=== PATIENT | male | born 1970 | race Caucasian/White ===

== ENCOUNTER 2020-03-03 12:55 | Outpatient (REF) | payer OTHER, MEDICAID, SELFPAY ==
--- NOTE | 2020-03-03 13:12 | XR_ITS ---
EXAMINATION: KNEE X-RAY CLINICAL INFORMATION: Osteoarthritis COMPARISON: Previous x-ray June 2018 TECHNIQUE: Standing AP view of both knees and lateral and sunrise view of the right knee FINDINGS: Right: Bone alignment is normal. No fracture or dislocation is seen. There is joint space narrowing at the medial femoral tibial joint. There is joint space narrowing and osteophyte formation at the patellofemoral joint. There is no joint effusion. There is a cortical bony excrescence projecting off the posterior proximal tibial shaft. This is unchanged from previous x-ray from December 2017 and probably represents a bony exostosis. Standing AP view of the left knee demonstrates mild medial femoral tibial joint space narrowing. XR/XR knee RT 2V IMPRESSION: Right knee: Arthritis at the medial femoral tibial and patellofemoral joints. Probable bony exostosis projecting off the proximal posterior tibial shaft.
--- NOTE | 2020-03-03 13:12 | XR_ITS ---
EXAMINATION: KNEE X-RAY CLINICAL INFORMATION: Osteoarthritis COMPARISON: Previous x-ray June 2018 TECHNIQUE: Standing AP view of both knees and lateral and sunrise view of the right knee FINDINGS: Right: Bone alignment is normal. No fracture or dislocation is seen. There is joint space narrowing at the medial femoral tibial joint. There is joint space narrowing and osteophyte formation at the patellofemoral joint. There is no joint effusion. There is a cortical bony excrescence projecting off the posterior proximal tibial shaft. This is unchanged from previous x-ray from December 2017 and probably represents a bony exostosis. Standing AP view of the left knee demonstrates mild medial femoral tibial joint space narrowing. XR/XR knee standing BI IMPRESSION: Right knee: Arthritis at the medial femoral tibial and patellofemoral joints. Probable bony exostosis projecting off the proximal posterior tibial shaft.
== END 2020-03-03 12:56 | disposition home or self-care (01) ==
LOC: HO.HOSX 12:55
PROVIDERS: PCP Internal Medicine Medical Oncology; Referring Provider Internal Medicine Medical Oncology; Visit Provider Orthopaedic Surgery
DX: M17.11 Unilateral primary osteoarthritis, right knee (principal)
CPT/HCPCS: 73560; 73565

== ENCOUNTER → 2020-03-19 08:30 | Outpatient (BNVA) | payer OTHER, MEDICAID, SELFPAY | PROVIDERS: PCP Internal Medicine Medical Oncology; Visit Provider Orthopaedic Surgery | DX: Z76.89 Persons encountering health services in other specified circumstances (principal) ==

== ENCOUNTER 2020-05-06 08:11 | Outpatient (REF) | payer OTHER, MEDICAID, SELFPAY ==
[2020-05-06 08:43] LABS: MANUAL DIFF FLAG NO
[2020-05-06 08:50] LABS: Basophils Percent Auto 0.4 % (0-2); Eosinophils Absolute Auto 0.1 X10*3/uL (0.0-0.4); Eosinophils Percent Auto 1.6 % (0-4); Hematocrit 44.5 % (42-52); Hemoglobin 14.5 g/dl (14.0-18.0); Imm Gran Abs Auto 0.03 X10*3/uL (0.00-0.03); Imm Gran Pct Auto 0.5 % (0.0-0.4); Lymphocytes Absolute Auto 1.8 X10*3/uL (1.2-4.9); Lymphocytes Percent Auto 31.6 % (20-40); Mean Corpuscular HGB Conc 32.6 g/dl (31.0-36.0); Mean Corpuscular Hemoglobin 29.3 pg (27.0-33.0); Mean Corpuscular Volume 89.9 fL (80-98); Mean Platelet Volume 10.1 fL (9.4-12.4); Monocytes Absolute Auto 0.8 X10*3/uL (0.1-1.2); Monocytes Percent Auto 13.6 % (2-11); Neutrophils Percent Auto 52.3 % (45-73); Platelet Count 222 X10*3/uL (160-400); Red Blood Count 4.95 X10*6/uL (4.60-5.80); Red Cell Distribution Width 12.8 % (11.0-16.0); White Blood Count 5.7 X10*3/uL (4.8-10.8)
[2020-05-06 09:10] LABS: Alanine Aminotransferase 34 U/L (0-40); Albumin Level 4.2 g/dL (3.5-5.0); Alkaline Phosphatase 85 U/L (39-117); Anion Gap 11 (12-20); Aspartate Amino Transferase 16 U/L (5-37); Bilirubin Total 0.5 mg/dL (0.0-1.0); Blood Urea Nitrogen 23 mg/dL (9-16); Carbon Dioxide 29 mmol/L (22-29); Chloride 106 mmol/L (96-108); Cholesterol 249 mg/dL; Estimated Glomerular Filt Rate > 60; Glucose Fasting 111 mg/dL (60-99); HDL Cholesterol 36 mg/dL; LDL Cholesterol Calculated 150 mg/dl; Potassium 4.8 mmol/l (3.3-5.1); Sodium 141 mmol/L (135-145); Total Protein 6.8 g/dL (6.5-8.0); Triglycerides 317 mg/dL; Uric Acid 5.7 mg/dL (3.4-7.0)
== END 2020-05-06 08:12 | disposition home or self-care (01) ==
LOC: HO.LAB 08:11
PROVIDERS: Absent Provider Orthopaedic Surgery; PCP Internal Medicine Medical Oncology; Visit Provider Internal Medicine Medical Oncology
DX: M54.16 Radiculopathy, lumbar region (principal); E78.00 Pure hypercholesterolemia, unspecified; E66.9 Obesity, unspecified
CPT/HCPCS: 36415; 80053; 80061; 84550; 85025

== ENCOUNTER → 2020-06-05 12:46 | Outpatient (BNVA) | payer OTHER, MEDICAID, SELFPAY | PROVIDERS: PCP Internal Medicine Medical Oncology; Visit Provider Physician Assistant ==

== ENCOUNTER 2020-06-11 06:22 | Inpatient (IN) | payer OTHER, MEDICAID, SELFPAY ==
[2020-06-06 10:45] VITALS: BP 128/76; PULSE 84; RESP 16; O2SAT 99; BMI 29.0
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
[2020-06-06 13:38] LABS: MRSA Nasal PCR NEGATIVE (Negative); SA Nasal PCR NEGATIVE (Negative)
[2020-06-11] VITALS (12 sets, daily range): BP systolic 118–157; BP diastolic 60–101; PULSE 75–111; RESP 16–18; TEMP 36.2–37.4; O2SAT 96–100
--- NOTE | ~2020-06-11 | XR_ITS ---
EXAMINATION: XR KNEE, RIGHT CLINICAL INFORMATION: Post knee replacement COMPARISON: Previous x-ray most recent February 2020 TECHNIQUE: 2 of the right knee. FINDINGS: There is a new 3 component right knee replacement in satisfactory position. No fracture or dislocation is seen. There are postoperative changes of the soft tissues. XR/XR knee RT 2V IMPRESSION: Satisfactory appearance of right knee replacement.
[2020-06-11] MEDS: Scopolamine 1.5 MG PATCH.TD.3 TRANSDERMA (06:47)
[2020-06-11 06:48] LABS: COVID-19 Test Negative (Negative); IDNOW Serial# 9DD0AD1C
[2020-06-11] MEDS: Lactated Ringers 1,000 ML 100 ML IVCONT (07:15)
--- NOTE | 2020-06-11 07:40 | MHC.SHP ---
Pre-Procedural Eval Section A The patient is an INPATIENT: No Changes since office visit: Yes Patient answered all questions; No Cold of Flu in the past 2 weeks, No New Medical Problems and No Changes in Medication The History & Physical has been completed within 30 days and I have reviewed it.: Yes Section B Chief Complaint: right knee osteoarthritis Allergies: Allergies Allergy/AdvReac Type Severity Reaction Status Date / Time Gadolinium-Containing Allergy Unknown Difficulty Verified 06/06/20 11:27 Contrast Medi Breathing [GADOLINIUM-CONTAINING CONTRAST] Iodinated Contrast Media Allergy Unknown Difficulty Verified 06/06/20 11:27 [IV CONTRAST] Breathing gadolinium dye contrast Allergy Unknown Difficulty Uncoded 06/06/20 11:27 Breathing Isovue-200 Allergy Unknown Anaphylaxis Uncoded 06/06/20 11:27 Plan I have reviewed the history and physical and performed a pertinent physical examination on my patient. No changes have occurred unless specified.
--- NOTE | 2020-06-11 09:10 | P.BOP_ITS ---
Brief Operative Note Date of Service: 06/11/20 Pre-op diagnosis: right knee OA Post-op diagnosis: same Procedure: right TKA Implants: [employer] Triathalon press fit /a Surgeon: Arias Pat MD Anesthesia: GETA and regional Plant Sciences Professor: Hang Ruiz Estimated blood loss (mL): 200 Tourniquet time (min): 0 IV fluids (mL): 1,100 Pathology: other Condition: stable Disposition: PACU
--- NOTE | 2020-06-11 09:11 | P.OP_ITS ---
Operative Note Operative Note Date of Service: 06/11/20 Narrative: Attending MD: Arias Pat [employer] Sales Associate:[place] Ruiz; Marie Jimenez Preoperative diagnosis: Right knee OA Postoperative diagnosis:Same Procedure performed: Right total knee arthroplasty Anesthesia:Gen and regional Blood loss:200 ml Fluids:1100 ml Miscellaneous: Indications: This is a 49 yo M with ongoing knee pain from arthritis that had not responded to years of surgical and non surgical management. He was consented to undergo right TKA. Findings: Medial femoral and tibial eburnation. Implants: Ayaz Triathalon press fit 08/28/9CR/38a Procedure in detail: Patient was brought to the operating room and prepped and draped in standard sterile fashion. A time-out was called to identify proper site proper procedure proper surgeon IV antibiotics were administered. 1 g of IV tranexamic acid was also administered. I began by making a midline incision to the retinaculum and performed a medial parapatellar arthrotomy. The patella was translated laterally and the knee was flexed up. I performed a small medial peel and resected the infrapatellar fat pad. [place]'s line was then used to drill my intramedullary femoral guide and my distal femur cut was made in 5 degrees of valgus. He had a 10 deg flexion contracture and so 12 mm as taken off the distal femur. I then measured the femur and placed my cutting guide and made my anterior posterior and chamfer cuts protecting the soft tissues at all times. Th ere was an anterior femoral osteophyte that was partially resected. Once I was happy with my cut I turned my attention to the tibia. In line with the tibial crest and with a 3 degree posterior slope I made my distal tibial cut protecting the PCL the posterior soft tissues at all times. An extension block was used to confirm appropriate amount of bony resection. He was drew in flexion and exte nsion and extended out fully. I then sized the tibia and once I was happy that there was good tibial coverage I placed my trial and with the trial femur in place took the knee through range of motion. I was happy with the extension and flexion as well as the stability at 0, 30 and 90 degrees. I then turned my attention to the patella where I removed 1 cm from the undersurface of the patella and then trialed a patellar button of appropriate dimensions. A 38a patella wqs used and drilled. With the patellar button in place the knee was taken through range of motion I was happy with the tracking. I then returned to the femur and drilled my femoral lug holes and prepared the tibia. Femoral bone plug was then placed and the knee was irrigated copiously. I then press fit the patella, tibia and femur in standard fashion. I trialed different inserts until I found the appropriate size. A 9mm CR insert was selected. I then placed the final insert and performed a 3 minutes iodine soak with 1 gm of local TXA. The knee was then closed with a running Quill suture, a 3 0 Vicryl and brayan on the skin. Patient was then placed in sterile dressing and brought to recovery room in stable condition there were no known complications.
[2020-06-11] MEDS: oxyCODONE HCl Immed Release 5 MG TABLET 10 MG PO (10:03)
[2020-06-11] MEDS: Dextrose 5 % and 0.45 % NaCl 1,000 ML 80 ML IVCONT (11:38)
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
[2020-06-11] MEDS: HYDROmorphone HCl 0.5 MG/0.5 ML SYRINGE 0.25 MG IVPUSH ×3 (13:25→21:45)
[2020-06-11] MEDS: ceFAZolin Sodium/Dextrose,Iso 2 GM/50 ML PIGGYBACK IV (13:59)
[2020-06-11] MEDS: Gabapentin 600 MG TABLET PO ×2 (14:03→20:55)
[2020-06-11] MEDS: oxyCODONE HCl Immed Release 5 MG TABLET PO ×2 (14:47→19:35)
--- NOTE | 2020-06-11 18:03 | PM.EVENT ---
Event Note Date of Service: 06/13/20 Event Note: Patient seen and examined: Status post right right TKA This patient is seen and examined with APC. Lab imaging reviewed. Physical exam and assessment and plan coordinated in APCs note, Agree with the plan . Pain management bowelRegimen
[2020-06-11] MEDS: ondansetron HCL 4 MG/2 ML VIAL IVPUSH (18:13)
[2020-06-11] MEDS: Acetaminophen 325 MG TABLET 650 MG PO (19:35)
[2020-06-11] MEDS: oxyCODONE HCl ER 10 MG TAB.ER.12H PO (20:55)
[2020-06-12] VITALS (10 sets, daily range): BP systolic 133–174; BP diastolic 63–99; PULSE 72–111; RESP 16–18; TEMP 36.6–37.6; O2SAT 94–99
[2020-06-12] MEDS: Dextrose 5 % and 0.45 % NaCl 1,000 ML 80 ML IVCONT ×3 (00:10→21:10)
[2020-06-12] MEDS: oxyCODONE HCl Immed Release 5 MG TABLET PO ×2 (00:23→05:34)
[2020-06-12] MEDS: HYDROmorphone HCl 0.5 MG/0.5 ML SYRINGE 0.25 MG IVPUSH ×5 (01:58→20:59)
[2020-06-12] MEDS: Omeprazole 20 MG CAPSULE.DR PO (05:35)
[2020-06-12] MEDS: Acetaminophen 325 MG TABLET 650 MG PO ×2 (05:35→18:38)
[2020-06-12 05:59] LABS: MANUAL DIFF FLAG NO
[2020-06-12 06:05] LABS: Basophils Percent Auto 0.2 % (0-2); Hemoglobin 12.2 g/dl (14.0-18.0); Imm Gran Abs Auto 0.03 X10*3/uL (0.00-0.03); Imm Gran Pct Auto 0.3 % (0.0-0.4); Lymphocytes Absolute Auto 1.6 X10*3/uL (1.2-4.9); Lymphocytes Percent Auto 13.3 % (20-40); Mean Corpuscular Hemoglobin 29.8 pg (27.0-33.0); Mean Corpuscular Volume 90.2 fL (80-98); Mean Platelet Volume 10.3 fL (9.4-12.4); Monocytes Absolute Auto 1.1 X10*3/uL (0.1-1.2); Monocytes Percent Auto 8.9 % (2-11); Neutrophils Absolute Auto 9.2 X10*3/uL (2.0-8.3); Neutrophils Percent Auto 77.3 % (45-73); Platelet Count 210 X10*3/uL (160-400); Red Cell Distribution Width 13.2 % (11.0-16.0); White Blood Count 11.9 X10*3/uL (4.8-10.8)
[2020-06-12 06:38] LABS: Anion Gap 14 (12-20); Blood Urea Nitrogen 12 mg/dL (9-16); Carbon Dioxide 24 mmol/L (22-29); Chloride 105 mmol/L (96-108); Creatinine Clr Calc Pharmacy 123.3; Estimated Glomerular Filt Rate > 60; Glucose Fasting 133 mg/dL (60-99); Potassium 4.2 mmol/L (3.3-5.1); Sodium 139 mmol/L (135-145)
--- NOTE | 2020-06-12 08:10 | PM.PNORT ---
Subjective Subjective Date of Service: 06/12/20 Interval history: POD1 s/p RTKA resting in bed. Having slight difficulty with pain management. Denies SOB, chest pain, and abd pain. Physical Exam Vital Signs: Vital Signs: Last Vital Signs Temp 98.2 F 06/12/20 07:50 Pulse 72 06/12/20 07:50 Resp 16 06/12/20 07:50 BP 140/76 H 06/12/20 07:50 Pulse Ox 99 06/12/20 07:50 Body Mass Index 29.0 Const: General: cooperative, healthy appearing and no acute distress Resp: Effort & Inspection: normal respiratory effort and able to speak in complete sentences Cardio: Rate: regular rate Peripheral pulses: Peripheral pulses 2+ throughout GI: Palpation (GI): Soft to palpation Skin: Lesions: no lesions Rashes: no rashes Extrem: Other: RT knee no ecchymosis, redness, or drainage. Bandage changed and new Aquacell dressing applied. NVI. Progress Note: A&P Assessment and plan (1) S/P total knee replacement: Status: Acute Assessment and Plan: Continue pain mgmnt, Adjusted Oxycodone to 10 mg Begin Aspirin dvt ppx begin PT for right total knee arthroplasty Dispo planning-Pending PT eval, pain mgmnt Fall Risk Details Current Medications: Current Medications Generic Name Dose Route Start Last Admin Trade Name Freq PRN Reason Stop Dose Admin Acetaminophen 650 mg 06/11/20 10:59 06/12/20 05:35 Acetaminophen 325 Mg Tablet PO 650 mg Q6H PRN Administration Pain, Mild (Pain Scale 1-3) Aspirin 325 mg 06/12/20 09:00 Aspirin 325 Mg Tablet PO BID EUGENE Duloxetine HCl 90 mg 06/12/20 09:00 Duloxetine Hcl 30 Mg Capsule. PO DAILY EUGENE Gabapentin 600 mg 06/11/20 15:00 06/11/20 20:55 Gabapentin 600 Mg Tablet PO 600 mg TID EUGENE Administration Hydromorphone HCl 0.25 mg 06/11/20 10:59 06/12/20 06:19 Hydromorphone Hcl 0.5 Mg/0.5 Ml Syringe IVPUSH 0.25 mg Q4H PRN Administration Pain, Severe (Pain Scale 7-10) Dextrose/Sodium Chloride 1,000 mls @ 80 mls/hr 06/11/20 10:59 06/12/20 00:10 D51/2ns IVCONT 80 mls/hr .[id number] EUGENE Administration Naloxone HCl 0.2 mg 06/11/20 10:59 Naloxone Hcl 0.4 Mg/Ml Vial IVPUSH Q2M PRN Excessive sedation or RR < 8 Omeprazole 20 mg 06/12/20 06:30 06/12/20 05:35 Omeprazole 20 Mg Capsule.Dr PO 20 mg DAILY@0630 EUGENE Administration Ondansetron HCl 4 mg 06/11/20 10:59 06/11/20 18:13 Ondansetron Hcl 4 Mg/2 Ml Vial IVPUSH 4 mg Q8H PRN Administration Nausea and Vomiting Oxycodone HCl 5 mg 06/11/20 10:59 06/12/20 05:34 Oxycodone Hcl Immed Release 5 Mg Tablet PO 5 mg Q4H PRN Administration Pain, Moderate (Pain Scale 4-6 Oxycodone HCl 10 mg 06/11/20 21:00 06/11/20 20:55 Oxycodone Hcl Er 10 Mg Tab.Er.12h PO 10 mg BID EUGENE Administration Senna 17.2 mg 06/11/20 10:59 Sennosides 8.6 Mg Tablet PO BEDTIME PRN Constipation Sodium Chloride 3 ml 06/11/20 16:00 06/12/20 08:01 0.9 % Sodium Chloride Flush 3 Ml Syringe IVFLUSH Not Given QSHIFT EUGENE Time Spent With Patient Time: Total time spent is greater than 50% in coordination of care (as documented) at patient's floor/unit and/or counseling patient: Time with patient: less than 15 minutes
--- NOTE | 2020-06-12 08:36 | HO.PM.IMPN ---
Subjective Subjective Date of Service: 06/13/20 <Ashleigh Ramirez NP - Last Filed: 06/13/20 08:38> 06/13/20 <Maximus More MD - Last Filed: 06/13/20 12:02> Interval History: Follow up consultation, right knee arthroplasty. Having some difficulty with pain management. <Ashleigh Ramirez NP - Last Filed: 06/13/20 08:38> Physical Exam Vital Signs: Vital Signs: Last Vital Signs Temp 98.2 F 06/12/20 07:50 Pulse 72 06/12/20 07:50 Resp 16 06/12/20 07:50 BP 140/76 H 06/12/20 07:50 Pulse Ox 99 06/12/20 07:50 Body Mass Index 29.0 <Ashleigh Ramirez NP - Last Filed: 06/13/20 08:38> Appearing in no acute distress head is normocephalic atraumatic eyes pupils are PERRLA sclera is anicteric mouth throat mucous membranes are intact and moist neck is supple no lymphadenopathy, no JVD noted lung sounds are clear to auscultation heart regular rate rhythm, clear S1, S2 positive bowel sounds, abdomen is soft, nontender neuro patient is alert x3, no focal deficits MSK right knee dressing, clean, dry and intact <Ashleigh Ramirez NP - Last Filed: 06/13/20 08:38> Objective Data Current Medications Generic Name Dose Route Start Last Admin Trade Name Freq PRN Reason Stop Dose Admin Acetaminophen 650 mg 06/11/20 10:59 06/12/20 05:35 Acetaminophen 325 Mg Tablet PO 650 mg Q6H PRN Administration Pain, Mild (Pain Scale 1-3) Aspirin 325 mg 06/12/20 09:00 Aspirin 325 Mg Tablet PO BID EUGENE Duloxetine HCl 90 mg 06/12/20 09:00 Duloxetine Hcl 30 Mg Capsule.Dr PO DAILY EUGENE Gabapentin 600 mg 06/11/20 15:00 06/11/20 20:55 Gabapentin 600 Mg Tablet PO 600 mg TID EUGENE Administration Hydromorphone HCl 0.25 mg 06/11/20 10:59 06/12/20 06:19 Hydromorphone Hcl 0.5 Mg/0.5 Ml Syringe IVPUSH 0.25 mg Q4H PRN Administration Pain, Severe (Pain Scale 7-10) Dextrose/Sodium Chloride 1,000 mls @ 80 mls/hr 06/11/20 10:59 06/12/20 00:10 D51/2ns IVCONT 80 mls/hr .[id number] EUGENE Administration Naloxone HCl 0.2 mg 06/11/20 10:59 Naloxone Hcl 0.4 Mg/Ml Vial IVPUSH Q2M PRN Excessive sedation or RR < 8 Omeprazole 20 mg 06/12/20 06:30 06/12/20 05:35 Omeprazole 20 Mg Capsule.Dr PO 20 mg DAILY@0630 EUGENE Administration Ondansetron HCl 4 mg 06/11/20 10:59 06/11/20 18:13 Ondansetron Hcl 4 Mg/2 Ml Vial IVPUSH 4 mg Q8H PRN Administration Nausea and Vomiting Oxycodone HCl 10 mg 06/11/20 21:00 06/11/20 20:55 Oxycodone Hcl Er 10 Mg Tab.Er.12h PO 10 mg BID EUGENE Administration Oxycodone HCl 10 mg 06/12/20 08:09 Oxycodone Hcl Immed Release 5 Mg Tablet PO Q4H PRN Pain, Moderate (Pain Scale 4-6 Senna 17.2 mg 06/11/20 10:59 Sennosides 8.6 Mg Tablet PO BEDTIME PRN Constipation Sodium Chloride 3 ml 06/11/20 16:00 06/12/20 08:01 0.9 % Sodium Chloride Flush 3 Ml Syringe IVFLUSH Not Given QSHIFT EUGENE <Ashleigh Ramirez NP - Last Filed: 06/13/20 08:38> Labs CBC & Chem 7: : 06/13/20 06:05 06/13/20 06:05 <Ashleigh Ramirez NP - Last Filed: 06/13/20 08:38> Assessment and Plan (1) S/P total knee replacement: Status: Acute <Ashleigh Ramirez NP - Last Filed: 06/13/20 08:38> Assessment and Plan: 49 year old man status post right knee arthroplasty Right knee arthroplasty. -Pain management difficult. -Roxicodone dose increased. -Supportive care Normocytic anemia. -Likely post-operative, no signs of bleeding -Follow CBC Neuropathy/Back pain. Gabapentin. GERD. PPI. <Ashleigh Ramirez NP - Last Filed: 06/13/20 08:38>
[2020-06-12] MEDS: Gabapentin 600 MG TABLET PO ×3 (09:05→20:54)
[2020-06-12] MEDS: DULoxetine HCl 30 MG CAPSULE.DR 90 MG PO (09:05)
[2020-06-12] MEDS: oxyCODONE HCl ER 10 MG TAB.ER.12H PO ×2 (09:06→20:54)
[2020-06-12] MEDS: Aspirin 325 MG TABLET PO ×2 (09:06→20:54)
[2020-06-12] MEDS: oxyCODONE HCl Immed Release 5 MG TABLET 10 MG PO ×3 (09:08→18:38)
--- NOTE | 2020-06-12 10:54 | HO.POSTANES ---
Post Anesthesia Evaluation Post Anesthesia Evaluation Vital Signs: Vital Signs Temp Pulse Resp BP Pulse Ox 06/12/20 09:30 72 140/76 H 99 06/12/20 07:50 98.2 F 72 16 140/76 H 99 06/12/20 03:52 99.1 F 84 18 133/63 97 06/12/20 03:49 99.1 F 84 18 133/63 95 06/12/20 01:58 18 06/11/20 23:09 98.6 F 82 18 118/60 96 Anesthesia: Nerve Block (Adductor Canal Block) and General LMA Mental Status: Awake Pain Control: Satisfactory Nausea/Vomiting: None Hydration: Adequate Anesthesia-Related Issues: No Anes. Related Issues
--- NOTE | 2020-06-12 14:27 | MHC.CM.PN ---
PATIENT LIVES WITH AND FAMILY NO DME OR VNA SERVICES PRIOR TO ADMISSION. HE IS AGREEABLE TO VNA AND CHOOSES [facility]. REFERRAL PLACED AND AGENCY IS OFFERING SOC Tuesday06/14/20. PATIENT RECENTLY ADMINISTERED PAIN MEDICATION. CASE MANAGEMENT AGREES TO RETURN TOMORROW (06/13) TO COMPLETE A HCP DOCUMENT. PATIENT STATES THAT HE COMPLETED ONE AT HIS PCP OFFICE, BUT HE IS NOT SURE IF THERE IS A COPY THERE OR NOT. WILL BE THE HCP AGENT.
[2020-06-12] MEDS: 0.9 % Sodium Chloride Flush 3 ML SYRINGE IVFLUSH (15:34)
[2020-06-12] MEDS: ondansetron HCL 4 MG/2 ML VIAL IVPUSH (17:57)
[2020-06-13] VITALS (9 sets, daily range): BP systolic 118–159; BP diastolic 67–90; PULSE 98–123; RESP 15–18; TEMP 35.7–36.7; O2SAT 94–97
--- NOTE | 2020-06-13 01:21 | MHC.PIE ---
P: Pt having increased pain from Physical therapy earlier in the day. 0.25mg Dilaudid given Q4hr, Roxicodone 10mg given Q6hr, both with little to no effect. Patient consistently rating pain 8/10. I: Pt repositioned, Ice applied to right knee, PRN pain medication given as soon as available. bingo manager orthopedic MD notified, ordered extra one time dose of 0.25mg, and continue using ice until the morning. E: Currently awaiting order to be submitted.
[2020-06-13] MEDS: HYDROmorphone HCl 0.5 MG/0.5 ML SYRINGE 0.25 MG IVPUSH ×2 (02:16)
[2020-06-13] MEDS: Omeprazole 20 MG CAPSULE.DR PO (06:20)
[2020-06-13] MEDS: Sennosides 8.6 MG TABLET 17.2 MG PO (06:20)
[2020-06-13 06:33] LABS: MANUAL DIFF FLAG NO
[2020-06-13 07:03] LABS: Basophils Percent Auto 0.3 % (0-2); Eosinophils Percent Auto 0.3 % (0-4); Hematocrit 39.2 % (42-52); Hemoglobin 12.7 g/dl (14.0-18.0); Imm Gran Abs Auto 0.04 X10*3/uL (0.00-0.03); Imm Gran Pct Auto 0.4 % (0.0-0.4); Lymphocytes Absolute Auto 1.8 X10*3/uL (1.2-4.9); Lymphocytes Percent Auto 17.2 % (20-40); Mean Corpuscular HGB Conc 32.4 g/dl (31.0-36.0); Mean Corpuscular Hemoglobin 29.3 pg (27.0-33.0); Mean Corpuscular Volume 90.3 fL (80-98); Mean Platelet Volume 9.9 fL (9.4-12.4); Monocytes Absolute Auto 1.1 X10*3/uL (0.1-1.2); Monocytes Percent Auto 10.8 % (2-11); Neutrophils Absolute Auto 7.2 X10*3/uL (2.0-8.3); Platelet Count 208 X10*3/uL (160-400); Red Blood Count 4.34 X10*6/uL (4.60-5.80); Red Cell Distribution Width 13.2 % (11.0-16.0); White Blood Count 10.2 X10*3/uL (4.8-10.8)
[2020-06-13 07:15] LABS: Anion Gap 12 (12-20); Blood Urea Nitrogen 7 mg/dL (9-16); Calcium 8.2 mg/dL (8.4-10.2); Carbon Dioxide 28 mmol/L (22-29); Chloride 102 mmol/L (96-108); Creatinine Clr Calc Pharmacy 133.7; Estimated Glomerular Filt Rate > 60; Glucose Fasting 127 mg/dL (60-99); Potassium 3.9 mmol/L (3.3-5.1); Sodium 138 mmol/L (135-145)
[2020-06-13] MEDS: DULoxetine HCl 30 MG CAPSULE.DR 90 MG PO (08:05)
[2020-06-13] MEDS: 0.9 % Sodium Chloride Flush 3 ML SYRINGE IVFLUSH ×3 (08:06→23:34)
[2020-06-13] MEDS: Gabapentin 600 MG TABLET PO ×3 (08:06→20:17)
[2020-06-13] MEDS: Aspirin 325 MG TABLET PO ×2 (08:06→20:17)
--- NOTE | 2020-06-13 08:31 | HO.PM.IMPN ---
Subjective Subjective Date of Service: 06/13/20 <Ashleigh Ramirez NP - Last Filed: 06/13/20 08:39> 06/13/20 <Maximus More MD - Last Filed: 06/13/20 12:03> Interval History: Follow up consult. Feeling better with pain today, had some nausea with oxycodone, switched to oral diluadid <Ashleigh Ramirez NP - Last Filed: 06/13/20 08:39> Physical Exam Vital Signs: Vital Signs: Last Vital Signs Temp 97.2 F 06/13/20 07:54 Pulse 102 H 06/13/20 07:54 Resp 18 06/13/20 07:54 BP 157/90 H 06/13/20 07:54 Pulse Ox 95 06/13/20 07:54 Body Mass Index 29.0 <Ashleigh Ramirez NP - Last Filed: 06/13/20 08:39> Appearing in no acute distress head is normocephalic atraumatic eyes pupils are PERRLA sclera is anicteric mouth throat mucous membranes are intact and moist neck is supple no lymphadenopathy, no JVD noted lung sounds are clear to auscultation heart regular rate rhythm, clear S1, S2 positive bowel sounds, abdomen is soft, nontender neuro patient is alert x3, no focal deficits MSK Dressing clean, dry and intact <Ashleigh Ramirez NP - Last Filed: 06/13/20 08:39> Objective Data Current Medications Generic Name Dose Route Start Last Admin Trade Name Freq PRN Reason Stop Dose Admin Acetaminophen 650 mg 06/11/20 10:59 06/12/20 18:38 Acetaminophen 325 Mg Tablet PO 650 mg Q6H PRN Administration Pain, Mild (Pain Scale 1-3) Aspirin 325 mg 06/12/20 09:00 06/13/20 08:06 Aspirin 325 Mg Tablet PO 325 mg BID EUGENE Administration Duloxetine HCl 90 mg 06/12/20 09:00 06/13/20 08:05 Duloxetine Hcl 30 Mg Capsule.Dr PO 90 mg DAILY EUGENE Administration Gabapentin 600 mg 06/11/20 15:00 06/13/20 08:06 Gabapentin 600 Mg Tablet PO 600 mg TID EUGENE Administration Hydromorphone HCl 0.25 mg 06/11/20 10:59 06/13/20 02:16 Hydromorphone Hcl 0.5 Mg/0.5 Ml Syringe IVPUSH 0.25 mg Q4H PRN Administration Pain, Severe (Pain Scale 7-10) Hydromorphone HCl 2 mg 06/13/20 08:08 Hydromorphone Hcl 2 Mg Tablet PO Q4H PRN Pain, Moderate (Pain Scale 4-6 Dextrose/Sodium Chloride 1,000 mls @ 80 mls/hr 06/11/20 10:59 06/12/20 21:10 D51/2ns IVCONT 80 mls/hr .[id number] EUGENE Administration Naloxone HCl 0.2 mg 06/11/20 10:59 Naloxone Hcl 0.4 Mg/Ml Vial IVPUSH Q2M PRN Excessive sedation or RR < 8 Omeprazole 20 mg 06/12/20 06:30 06/13/20 06:20 Omeprazole 20 Mg Capsule.Dr PO 20 mg DAILY@0630 EUGENE Administration Ondansetron HCl 4 mg 06/11/20 10:59 06/12/20 17:57 Ondansetron Hcl 4 Mg/2 Ml Vial IVPUSH 4 mg Q8H PRN Administration Nausea and Vomiting Oxycodone HCl 10 mg 06/11/20 21:00 06/12/20 20:54 Oxycodone Hcl Er 10 Mg Tab.Er.12h PO 10 mg BID EUGENE Administration Oxycodone HCl 10 mg 06/12/20 08:09 06/12/20 18:38 Oxycodone Hcl Immed Release 5 Mg Tablet PO 10 mg Q4H PRN Administration Pain, Moderate (Pain Scale 4-6 Senna 17.2 mg 06/11/20 10:59 06/13/20 06:20 Sennosides 8.6 Mg Tablet PO 17.2 mg BEDTIME PRN Administration Constipation Sodium Chloride 3 ml 06/11/20 16:00 06/13/20 08:06 0.9 % Sodium Chloride Flush 3 Ml Syringe IVFLUSH 3 ml QSHIFT EUGENE Administration <Ashleigh Ramirez NP - Last Filed: 06/13/20 08:39> Labs CBC & Chem 7: : 06/13/20 06:05 06/13/20 06:05 <Ashleigh Ramirez NP - Last Filed: 06/13/20 08:39> Assessment and Plan (1) S/P total knee replacement: Status: Acute <Ashleigh Ramirez NP - Last Filed: 06/13/20 08:39> Assessment and Plan: 49 year old man status post right knee arthroplasty Right knee arthroplasty. -Pain management better, changed to oral dilaudid -Roxicodone dose increased. -Supportive care Normocytic anemia. -Likely post-operative, no signs of bleeding -Follow CBC Neuropathy/Back pain. Gabapentin. GERD. PPI. Will sign off today, likely discharge from ortho perspective. <Ashleigh Ramirez NP - Last Filed: 06/13/20 08:39>
[2020-06-13] MEDS: HYDROmorphone HCl 2 MG TABLET PO (08:45)
[2020-06-13] MEDS: ondansetron HCL 4 MG/2 ML VIAL IVPUSH (08:45)
--- NOTE | 2020-06-13 08:45 | PM.PNORT ---
Subjective Subjective Date of Service: 06/13/20 Interval history: POD2 s/p RTKA patient resting comfortably in bed. Overnight was having difficulty with pain management. Pain meds were adjusted and he is now receiving Dilaudid 2mg q 4hrs PO. Denies SOB, chest pain, abd pain. Physical Exam Vital Signs: Vital Signs: Last Vital Signs Temp 97.2 F 06/13/20 07:54 Pulse 102 H 06/13/20 07:54 Resp 18 06/13/20 07:54 BP 157/90 H 06/13/20 07:54 Pulse Ox 95 06/13/20 07:54 Body Mass Index 29.0 Const: General: cooperative, healthy appearing and no acute distress Resp: Effort & Inspection: normal respiratory effort and able to speak in complete sentences Cardio: Rate: regular rate Peripheral pulses: Peripheral pulses 2+ throughout GI: Palpation (GI): Soft to palpation Skin: Lesions: no lesions Rashes: no rashes Extrem: Other: Rt knee no ecchymosis, redness, or drainage. Aquacell dressing removed and a new one applied. Incision is well approximated and brayan intact. NVI. Progress Note: A&P Assessment and plan (1) S/P total knee replacement: Status: Acute Assessment and Plan: Continue pain mgmnt, started on Dilaudid 2mg PO q 4hrs Continue Aspirin for dvt ppx Continue PT for RT TKA Dispo planning-Pending PT eval, pain mgmnt Fall Risk Details Current Medications: Current Medications Generic Name Dose Route Start Last Admin Trade Name Freq PRN Reason Stop Dose Admin Acetaminophen 650 mg 06/11/20 10:59 06/12/20 18:38 Acetaminophen 325 Mg Tablet PO 650 mg Q6H PRN Administration Pain, Mild (Pain Scale 1-3) Aspirin 325 mg 06/12/20 09:00 06/13/20 08:06 Aspirin 325 Mg Tablet PO 325 mg BID EUGENE Administration Duloxetine HCl 90 mg 06/12/20 09:00 06/13/20 08:05 Duloxetine Hcl 30 Mg Capsule. PO 90 mg DAILY EUGENE Administration Gabapentin 600 mg 06/11/20 15:00 06/13/20 08:06 Gabapentin 600 Mg Tablet PO 600 mg TID EUGENE Administration Hydromorphone HCl 0.25 mg 06/11/20 10:59 06/13/20 02:16 Hydromorphone Hcl 0.5 Mg/0.5 Ml Syringe IVPUSH 0.25 mg Q4H PRN Administration Pain, Severe (Pain Scale 7-10) Hydromorphone HCl 2 mg 06/13/20 08:08 Hydromorphone Hcl 2 Mg Tablet PO Q4H PRN Pain, Moderate (Pain Scale 4-6 Dextrose/Sodium Chloride 1,000 mls @ 80 mls/hr 06/11/20 10:59 06/12/20 21:10 D51/2ns IVCONT 80 mls/hr .[id number] EUGENE Administration Naloxone HCl 0.2 mg 06/11/20 10:59 Naloxone Hcl 0.4 Mg/Ml Vial IVPUSH Q2M PRN Excessive sedation or RR < 8 Omeprazole 20 mg 06/12/20 06:30 06/13/20 06:20 Omeprazole 20 Mg Capsule.Dr PO 20 mg DAILY@0630 EUGENE Administration Ondansetron HCl 4 mg 06/11/20 10:59 06/12/20 17:57 Ondansetron Hcl 4 Mg/2 Ml Vial IVPUSH 4 mg Q8H PRN Administration Nausea and Vomiting Oxycodone HCl 10 mg 06/11/20 21:00 06/12/20 20:54 Oxycodone Hcl Er 10 Mg Tab.Er.12h PO 10 mg BID EUGENE Administration Oxycodone HCl 10 mg 06/12/20 08:09 06/12/20 18:38 Oxycodone Hcl Immed Release 5 Mg Tablet PO 10 mg Q4H PRN Administration Pain, Moderate (Pain Scale 4-6 Senna 17.2 mg 06/11/20 10:59 06/13/20 06:20 Sennosides 8.6 Mg Tablet PO 17.2 mg BEDTIME PRN Administration Constipation Sodium Chloride 3 ml 06/11/20 16:00 06/13/20 08:06 0.9 % Sodium Chloride Flush 3 Ml Syringe IVFLUSH 3 ml QSHIFT EUGENE Administration Time Spent With Patient Time: Total time spent is greater than 50% in coordination of care (as documented) at patient's floor/unit and/or counseling patient: Time with patient: less than 15 minutes
--- NOTE | 2020-06-13 14:13 | MHC.CM.PN ---
PATIENT IS DISCHARGED HOME WITH [facility] SERVICES. TO TRANSPORT. RN AWARE OF PLAN.
[2020-06-13] MEDS: Acetaminophen 325 MG TABLET 650 MG PO (14:46)
--- NOTE | 2020-06-13 15:42 | P.F2F_ITS ---
Service Date Service Date: 06/13/20 Reasons for Services Reason for physical therapy: home safety and mobility, therapeutic exercises, restore joint function, gait/transfer training, ADL training and energy conservation Reason for occupational therapy: home safety and mobility, therapeutic exercises, restore joint function, gait/transfer training, assess need for DME, ADL training and energy conservation Overseeing Care: Arias Pat Homebound: Leaving the home is medically contraindicated at this time without the asist of a device and/or another person due th the listed conditions above and below. Reason homebound: unsteady gait / fall risk, leg weakness, pain with ambulation, pain with transfers, poor balance / fall risk and unable to drive Homebound supporting statement: Pt. is considered home bound due to recent surgery. Unable to drive, poor balance, poor gait mechanics. Certification: Based on the above findings, I certify that this patient is confined to the home and needs intermittent prison care, physical therapy and/or speech therapy, or continues to need occupational therapy. The patient is under my care, and I have initiated the establishment of the plan of care. The patient will be followed by a physician who will periodically review the plan of care.
[2020-06-14 04:00] VITALS: BP 126/83; PULSE 100; RESP 16; TEMP 36.2; O2SAT 95
[2020-06-14] MEDS: Omeprazole 20 MG CAPSULE.DR PO (06:36)
[2020-06-14 07:19] VITALS: BP 113/64; PULSE 104; RESP 18; TEMP 36.6; O2SAT 96
[2020-06-14] MEDS: DULoxetine HCl 30 MG CAPSULE.DR 90 MG PO (07:56)
[2020-06-14] MEDS: Aspirin 325 MG TABLET PO (07:57)
[2020-06-14] MEDS: Gabapentin 600 MG TABLET PO (07:57)
[2020-06-14] MEDS: Acetaminophen 325 MG TABLET 650 MG PO (08:00)
[2020-06-14 08:48] VITALS: BP 113/64; PULSE 104; O2SAT 96
--- NOTE | 2020-06-14 13:11 | MHC.CM.PN ---
Pt will DC today, home with [facility]. Plan for pts to transport. [facility] notified via [employer]
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
== END 2020-06-14 12:44 | disposition home health service (06) | DRG 326 ==
LOC: HO.SSSA 07:33 → HO.S3 10:13
PROVIDERS: Physician Assistant; Admitting Provider Orthopaedic Surgery; PCP Internal Medicine Medical Oncology; Visit Provider Orthopaedic Surgery
PROC: 0SRC0JA Replacement of Right Knee Joint with Synthetic Substitute, Uncemented, Open Approach (ICD-10-PCS; CPT 27447; principal; 2020-06-11 07:30)
DX: M17.11 Unilateral primary osteoarthritis, right knee (principal); D64.9 Anemia, unspecified; K21.9 Gastro-esophageal reflux disease without esophagitis; G62.9 Polyneuropathy, unspecified; Z20.822 Contact with and (suspected) exposure to COVID-19; Z79.899 Other long term (current) drug therapy
CPT/HCPCS: 36415; 73560; 80048; 85025; 86850; 86900; 86901; 87635; 87640; 87641; 88305; 88311; 97110; 97116; 97162; 97530; C1776; J0690; J1100; J1170; J1885; J2250; J2405; J3010

== ENCOUNTER → 2020-06-26 13:04 | Outpatient (BNVA) | payer OTHER, MEDICAID, SELFPAY | PROVIDERS: PCP Internal Medicine Medical Oncology; Visit Provider Physician Assistant ==

== ENCOUNTER → 2020-07-10 11:14 | Outpatient (BNVA) | payer OTHER, MEDICAID, SELFPAY | PROVIDERS: PCP Internal Medicine Medical Oncology; Visit Provider Physician Assistant ==

== ENCOUNTER → 2020-07-24 09:12 | Outpatient (BNVA) | payer OTHER, MEDICAID, SELFPAY | PROVIDERS: PCP Internal Medicine Medical Oncology; Visit Provider Orthopaedic Surgery ==

== ENCOUNTER → 2020-09-01 08:57 | Outpatient (BNVA) | payer OTHER, MEDICAID, SELFPAY | PROVIDERS: PCP Internal Medicine Medical Oncology; Visit Provider Orthopaedic Surgery ==

== ENCOUNTER 2020-10-08 11:55 | Outpatient (REF) | payer OTHER, MEDICAID, SELFPAY ==
--- NOTE | ~2020-10-08 | XR_ITS ---
EXAMINATION: CHEST X-RAY AND THE X-RAY CLINICAL INFORMATION: Chronic cough. Right knee pain. COMPARISON: Previous chest x-ray November 2019 and I lateral knee x-ray June 2018 TECHNIQUE: 2 views of the chest 3 views of the right knee FINDINGS: Chest: The cardiac and mediastinal contours are normal. The lungs are clear. There is no pleural effusion or pneumothorax. There are degenerative changes of the spine. Right knee: There is a 3 component right knee replacement in satisfactory position. This is new in the interval from June 2018. No fracture, dislocation or x-ray evidence of loosening is seen. There is a joint effusion. There is mild soft tissue swelling overlying the patella and patellar tendon. XR/XR chest 2V IMPRESSION: Chest: Unremarkable exam Right knee: Right knee replacement medially in the interval from June 2018. Joint effusion and mild soft tissue swelling over the patella and patellar tendon.
--- NOTE | ~2020-10-08 | XR_ITS ---
EXAMINATION: CHEST X-RAY AND THE X-RAY CLINICAL INFORMATION: Chronic cough. Right knee pain. COMPARISON: Previous chest x-ray November 2019 and I lateral knee x-ray June 2018 TECHNIQUE: 2 views of the chest 3 views of the right knee FINDINGS: Chest: The cardiac and mediastinal contours are normal. The lungs are clear. There is no pleural effusion or pneumothorax. There are degenerative changes of the spine. Right knee: There is a 3 component right knee replacement in satisfactory position. This is new in the interval from June 2018. No fracture, dislocation or x-ray evidence of loosening is seen. There is a joint effusion. There is mild soft tissue swelling overlying the patella and patellar tendon. XR/XR knee RT 3V IMPRESSION: Chest: Unremarkable exam Right knee: Right knee replacement medially in the interval from June 2018. Joint effusion and mild soft tissue swelling over the patella and patellar tendon.
== END 2020-10-08 11:56 | disposition home or self-care (01) ==
LOC: HO.XRAY 11:55
PROVIDERS: PCP Internal Medicine Medical Oncology; Visit Provider Internal Medicine Medical Oncology
DX: M25.561 Pain in right knee (principal); R05 Cough
CPT/HCPCS: 71046; 73562

== ENCOUNTER 2020-11-04 09:03 | Outpatient (REF) | payer OTHER, MEDICAID, SELFPAY ==
[2020-11-06 05:31] LABS: Rubella IgG Antibody 5.13 Index
== END 2020-11-04 09:04 | disposition home or self-care (01) ==
LOC: HO.LAB 09:03
PROVIDERS: PCP Internal Medicine Medical Oncology; Visit Provider Internal Medicine Medical Oncology
DX: Z01.84 Encounter for antibody response examination (principal)
CPT/HCPCS: 36415; 86735; 86762; 86765; 86787

== ENCOUNTER → 2020-12-01 09:10 | Outpatient (BNVA) | payer OTHER, MEDICAID, SELFPAY | PROVIDERS: PCP Internal Medicine Medical Oncology; Visit Provider Physician Assistant ==

== ENCOUNTER 2021-03-27 08:20 | Outpatient (REF) | payer OTHER, MEDICAID, SELFPAY ==
[2021-03-27 09:32] LABS: COVID-19 Test Negative (Negative)
== END 2021-03-27 08:21 | disposition home or self-care (01) ==
LOC: HO.LAB 08:20
PROVIDERS: PCP Internal Medicine Medical Oncology; Visit Provider Internal Medicine
DX: Z20.822 Contact with and (suspected) exposure to COVID-19 (principal)
CPT/HCPCS: 36415; 87635; C9803

== ENCOUNTER 2021-05-07 16:27 | Outpatient (REF) | payer OTHER, MEDICAID, SELFPAY ==
--- NOTE | ~2021-05-07 | XR_ITS ---
EXAMINATION: XR CHEST CLINICAL INFORMATION: Shortness of breath COMPARISON: Previous chest x-ray most recent September 2020 TECHNIQUE: 2 views of the chest were obtained. FINDINGS: The cardiac and mediastinal contours are normal. The lungs are clear. There is no pleural effusion or pneumothorax. There are degenerative changes of the spine. XR/XR chest 2V IMPRESSION: No evidence for acute disease in the chest.
== END 2021-05-07 16:28 | disposition home or self-care (01) ==
LOC: HO.XRAY 16:27
PROVIDERS: PCP Internal Medicine Medical Oncology; Visit Provider Internal Medicine Medical Oncology
DX: R06.02 Shortness of breath (principal)
CPT/HCPCS: 71046

== ENCOUNTER 2021-06-08 08:30 | Outpatient (REF) | payer OTHER, MEDICAID, SELFPAY | END 2021-06-08 08:31 | disposition home or self-care (01) | LOC: HO.HOSX 08:30 | PROVIDERS: Visit Provider Orthopaedic Surgery | DX: Z13.89 Encounter for screening for other disorder (principal) ==

== ENCOUNTER 2021-10-20 07:25 | Day surgery (SDC) | payer OTHER, SELFPAY ==
[2021-10-13 16:25] VITALS: BMI 27.7
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
[2021-10-20 07:27] VITALS: BP 114/75; PULSE 70; RESP 17; TEMP 36.1; O2SAT 99
[2021-10-20] MEDS: Lactated Ringers 1,000 ML 100 ML IVCONT (07:41)
--- NOTE | 2021-10-20 07:54 | PC.NURSE ---
annamarie osto results liquid painter to yellow no solids
[2021-10-20] MEDS: Sodium Phosphate,Mono-Dibasic 133 ML ENEMA PR (08:00)
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
--- NOTE | 2021-10-20 08:31 | MHC.SHP ---
Pre-Procedural Eval Section A Date of Service: 10/20/21 Section B Chief Complaint: reflux disease,screening Details of Present Illness: see H&P no changes Relevant Family History (Specify if Yes): No Relevant Social History: None Present Medications: see Short Stay [facility] assessment Medical History: No relevant PMH History of Previous Operations: No relevant previous surgery Allergies: Allergies Allergy/AdvReac Type Severity Reaction Status Date / Time Gadolinium-Containing Allergy Unknown Difficulty Verified 10/13/21 16:04 Contrast Medi Breathing [GADOLINIUM-CONTAINING CONTRAST] Iodinated Contrast Media Allergy Unknown Difficulty Verified 10/13/21 16:04 [IV CONTRAST] Breathing Isovue-200 Allergy Unknown Anaphylaxis Uncoded 10/13/21 16:04 Review of Systems Sugical H&P ROS: Negative: Constitution, Cardiovascular, Respiratory, Neurological, Psychiatric, Hem-Onc, Allergic/Immunologic, Gastrointestinal, Genitourinary, Musculoskeletal, Integumentary, Endocrine and Eyes/Ears/Nose/Throat Exam Surgical H&P Exam: Normal: HEENT, Normal: Heart, Normal: Lungs, Normal: Extremities, Normal: Abdomen, Normal: Skin and Normal: Neurological Plan Diagnosis/Plan: Unchanged I have reviewed the history and physical and performed a pertinent physical examination on my patient. No changes have occurred unless specified.
--- NOTE | 2021-10-20 09:18 | P.BOP_ITS ---
Brief Operative Note Date of Service: 10/20/21 Pre-op diagnosis: gerd, screening Post-op diagnosis: same (colon polyp) Surgeon: Francisco Javier Piña Anesthesia: MAC Was an Human Performance Technologist used for this Procedure?: No Estimated blood loss (mL): 5 Pathology: other (see req) Condition: stable Disposition: PACU
[2021-10-20 09:23] VITALS: BP 104/67; PULSE 61; RESP 16; TEMP 36.3; O2SAT 97
[2021-10-20 09:38] VITALS: BP 102/63; PULSE 60; RESP 16; TEMP 36.3; O2SAT 98
--- NOTE | 2021-10-20 12:15 | OP_ITS ---
SURGEON: Francisco Javier Piña MD INDICATIONS: Colon cancer screening and gastroesophageal reflux disease. PREOPERATIVE DIAGNOSIS: POSTOPERATIVE DIAGNOSIS: PROCEDURE PERFORMED: Upper endoscopy with biopsy, colonoscopy to the cecum with cold snare polypectomy. ESTIMATED BLOOD LOSS: COMPLICATIONS: ANESTHESIA: ASSISTANTS: SPECIMENS: MEDICATIONS: Monitored anesthesia care. DESCRIPTION OF PROCEDURE: History and physical were performed. The risks and benefits of the procedure were explained to the patient. An informed consent was obtained. The patient was placed in the left lateral decubitus position. The Olympus video gastroscope was introduced into the esophagus, stomach, and duodenum. Examination was performed. The scope was removed. He was repositioned for colonoscopy. A digital rectal exam was performed and was found to be normal. The Olympus pediatric video colonoscope was introduced into the rectum and advanced to the cecum without difficulty. The cecum was identified by transillumination, palpation, and identification of ileocecal valve. Examination was performed and the scope was removed. He tolerated both procedures well and was returned to recovery area in stable condition. FINDINGS: UPPER ENDOSCOPY: Esophagus: The esophagus was normal. There was no esophagitis. Biopsies were obtained from the EG junction. Stomach: The stomach showed no evidence of masses, ulcers, or polyps. Antral biopsies were obtained to evaluate for H pylori. Duodenum: The bulb and second portion were normal. COLONOSCOPY: The terminal ileum was not examined. There was a large amount of liquid stool and undigested food material, which clogged the scope and made the procedure extended and difficult. This was washed and suctioned as best possible, but areas in the cecum, right colon and descending colon were not well visualized. Small polyps could have been missed. In the rectum was a 6 mm polyp, which was sessile. This was removed with a cold snare and recovered via suction. Retroflexed examination showed some internal hemorrhoids. IMPRESSION: 1. Gastroesophageal reflux disease. 2. Colon polyp. RECOMMENDATION: 1. Follow up the biopsy results. 2. Consider repeat colonoscopy with 2 day prep in the next 6-12 months. MD SHAYAN Wesley/LEA / [id number]
== END 2021-10-20 10:09 | disposition home or self-care (01) ==
PROVIDERS: PCP Internal Medicine Medical Oncology; Visit Provider Internal Medicine Gastroenterology
PROC: (CPT 45385; principal; 2021-10-20 08:20)
DX: Z12.11 Encounter for screening for malignant neoplasm of colon (principal); D12.7 Benign neoplasm of rectosigmoid junction; K21.9 Gastro-esophageal reflux disease without esophagitis; K64.8 Other hemorrhoids; R00.2 Palpitations; J30.2 Other seasonal allergic rhinitis; F41.1 Generalized anxiety disorder; Z79.899 Other long term (current) drug therapy; Z91.041 Radiographic dye allergy status; Z96.651 Presence of right artificial knee joint
CPT/HCPCS: 45385; 43239; 88305; 88342

== ENCOUNTER 2021-12-01 11:42 | Outpatient (REF) | payer OTHER, SELFPAY ==
[2021-12-01 11:58] LABS: MANUAL DIFF FLAG NO
[2021-12-01 13:31] LABS: Basophils Absolute Auto 0.1 X10*3/uL (0.0-0.2); Basophils Percent Auto 0.6 % (0-2); Eosinophils Absolute Auto 0.1 X10*3/uL (0.0-0.4); Eosinophils Percent Auto 1.1 % (0-4); Hematocrit 48.1 % (42.0-52.0); Hemoglobin 15.8 g/dl (14.0-18.0); Imm Gran Abs Auto 0.05 X10*3/uL (0.00-0.03); Imm Gran Pct Auto 0.6 % (0.0-0.4); Lymphocytes Percent Auto 24.6 % (20-40); Mean Corpuscular HGB Conc 32.8 g/dl (31.0-36.0); Mean Corpuscular Hemoglobin 29.3 pg (27.0-33.0); Mean Corpuscular Volume 89.2 fL (80.0-98.0); Mean Platelet Volume 10.1 fL (9.4-12.4); Monocytes Absolute Auto 0.7 X10*3/uL (0.1-1.2); Neutrophils Absolute Auto 5.3 x10*3/uL (2.0-8.3); Neutrophils Percent Auto 65.1 % (45-73); Platelet Count 250 X10*3/uL (160-400); Red Blood Count 5.39 X10*6/uL (4.60-5.80); Red Cell Distribution Width 12.5 % (11.0-16.0); White Blood Count 8.2 X10*3/uL (4.8-10.8)
[2021-12-01 13:38] LABS: Appearance Urine CLEAR; Color Urine YELLOW; Glucose Urine UA NEG (NEG); Leukocyte Esterase Urine NEG (NEG); Nitrite Urine NEG (NEG); PH 6.5 (5.0-8.0); Specific Gravity - Urine 1.025 (1.005-1.025); Urine Blood NEG (NEG); Urine Ketones NEG (NEG); Urine Protein TRACE MG/DL (NEG-TRACE)
[2021-12-01 14:04] LABS: Alanine Aminotransferase 14 U/L (0-40); Albumin Level 4.4 g/dL (3.5-5.0); Alkaline Phosphatase 90 U/L (39-117); Anion Gap 17 (12-20); Aspartate Amino Transferase 12 U/L (5-37); Bilirubin Total 0.7 mg/dL (0.0-1.0); Blood Urea Nitrogen 14 mg/dL (9-16); Calcium 9.4 mg/dL (8.4-10.2); Carbon Dioxide 26 mmol/L (22-29); Chloride 103 mmol/L (96-108); Cholesterol 246 mg/dL; Estimated Glomerular Filt Rate > 60; Glucose Random 95 mg/dL (60-115); HDL Cholesterol 37 mg/dL; LDL Cholesterol Calculated 156 mg/dl; Potassium 4.9 mmol/L (3.3-5.1); Sodium 141 mmol/L (135-145); Total Protein 7.4 g/dL (6.5-8.0); Triglycerides 268 mg/dL
[2021-12-01 14:31] LABS: Prostate Specific Antigen 14.67 ng/mL (<0.05-4.0)
== END 2021-12-01 11:43 | disposition home or self-care (01) ==
LOC: HO.LAB 11:42
PROVIDERS: PCP Internal Medicine Medical Oncology; Visit Provider Internal Medicine Medical Oncology
DX: N39.0 Urinary tract infection, site not specified (principal); N40.0 Benign prostatic hyperplasia without lower urinary tract symptoms; I49.3 Ventricular premature depolarization; R35.1 Nocturia; E78.5 Hyperlipidemia, unspecified; Z12.5 Encounter for screening for malignant neoplasm of prostate
CPT/HCPCS: 36415; 80053; 80061; 81003; 84153; 85025; 87086

== ENCOUNTER 2021-12-16 09:17 | Outpatient (REF) | payer OTHER, SELFPAY ==
[2021-12-17 14:17] LABS: Free Prostate Spec Ag 0.9 ng/mL; Percent Free Prostate Spec Ag 15 % (calc) (>25); Prostate Specific Ag Total 6.1 ng/mL (< OR = 4.0)
== END 2021-12-16 09:18 | disposition home or self-care (01) ==
LOC: HO.LAB 09:17
PROVIDERS: PCP Internal Medicine Medical Oncology; Visit Provider Internal Medicine Medical Oncology
DX: Z12.5 Encounter for screening for malignant neoplasm of prostate (principal); N40.0 Benign prostatic hyperplasia without lower urinary tract symptoms
CPT/HCPCS: 36415; 84154

== ENCOUNTER 2022-05-11 08:45 | Day surgery (SDC) | payer OTHER, SELFPAY ==
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
[2022-05-11 06:10] VITALS: BMI 28.3
[2022-05-11 09:01] VITALS: BP 103/76; PULSE 65; RESP 16; TEMP 36.3; O2SAT 98; BMI 28.3
[2022-05-11] MEDS: Lactated Ringers 1,000 ML 100 ML IVCONT (09:27)
--- NOTE | 2022-05-11 10:03 | MHC.SHP ---
Pre-Procedural Eval Section A Date of Service: 05/11/22 Section B Chief Complaint: screening Details of Present Illness: see H*P no changes Relevant Family History (Specify if Yes): No Relevant Social History: None Present Medications: see Short Stay [facility] assessment Medical History: No relevant PMH History of Previous Operations: No relevant previous surgery Allergies: Allergies Allergy/AdvReac Type Severity Reaction Status Date / Time Gadolinium-Containing Allergy Unknown Difficulty Verified 10/13/21 16:04 Contrast Medi Breathing [GADOLINIUM-CONTAINING CONTRAST] Iodinated Contrast Media Allergy Unknown Difficulty Verified 10/13/21 16:04 [IV CONTRAST] Breathing Isovue-200 Allergy Unknown Anaphylaxis Uncoded 10/13/21 16:04 Review of Systems Sugical H&P ROS: Negative: Constitution, Cardiovascular, Respiratory, Neurological, Psychiatric, Hem-Onc, Allergic/Immunologic, Gastrointestinal, Genitourinary, Musculoskeletal, Integumentary, Endocrine and Eyes/Ears/Nose/Throat Exam Surgical H&P Exam: Normal: HEENT, Normal: Heart, Normal: Lungs, Normal: Extremities, Normal: Abdomen, Normal: Skin and Normal: Neurological Plan Diagnosis/Plan: Unchanged I have reviewed the history and physical and performed a pertinent physical examination on my patient. No changes have occurred unless specified. Time Spent With Patient Time: Total time managing care of this patient today ____ minutes.
--- NOTE | 2022-05-11 10:40 | P.BOP_ITS ---
Brief Operative Note Date of Service: 05/11/22 Pre-op diagnosis: screening, poor prep on prior exam Post-op diagnosis: same Procedure: colonsocopy Surgeon: Francisco Javier Piña Anesthesia: MAC Was an Grants Administrator used for this Procedure?: No Estimated blood loss (mL): 0 Pathology: none sent Condition: stable Disposition: PACU
[2022-05-11 10:42] VITALS: BP 92/53; PULSE 52; RESP 16; TEMP 36.6; O2SAT 99
[2022-05-11 10:47] VITALS: BP 98/61; PULSE 55; RESP 16; O2SAT 100
[2022-05-11 10:52] VITALS: BP 100/61; PULSE 53; RESP 16; O2SAT 100
[2022-05-11 10:57] VITALS: BP 103/62; PULSE 55; RESP 18; TEMP 36.6; O2SAT 100
--- NOTE | 2022-05-11 11:27 | OP_ITS ---
SURGEON: Francisco Javier Piña MD INDICATIONS: Colon cancer screening and incomplete colonoscopy due to poor prep on his last examination. PREOPERATIVE DIAGNOSIS: POSTOPERATIVE DIAGNOSIS: PROCEDURE PERFORMED: Colonoscopy to the terminal ileum. ESTIMATED BLOOD LOSS: COMPLICATIONS: ANESTHESIA: Monitored anesthesia care. ASSISTANTS: SPECIMENS: DESCRIPTION OF PROCEDURE: The history and physical was performed. The procedure was done on 05/11/2022. The risks and benefits of the procedure were explained to the patient. Informed consent was obtained. The patient was placed in the left lateral decubitus position. A digital rectal exam was performed and was found to be normal. The Olympus pediatric video colonoscope was introduced into the rectum and advanced to the cecum without difficulty. The cecum was identified by transillumination, palpation, and identification of ileocecal valve. Examination was performed. The scope was removed. He tolerated the procedure well, and returned to recovery area in stable condition. FINDINGS: The terminal ileum was briefly examined and appeared normal. The visualized colonic mucosa was normal. There was some liquid stool coating the mucosa. This was washed and suctioned, but the exam was much better from his last examination and was considered adequate. No polyps were identified. Retroflexed examination showed small internal hemorrhoids. IMPRESSION: Normal colonoscopy. RECOMMENDATION: Follow up in 7 years because of the previous adenoma noted at the time of his last colonoscopy 6 months ago. MD SHAYAN Wesley/LEA / [id number]
== END 2022-05-11 12:10 | disposition home or self-care (01) ==
PROVIDERS: PCP Internal Medicine Medical Oncology; Visit Provider Internal Medicine Gastroenterology
PROC: 0DJD8ZZ Inspection of Lower Intestinal Tract, Via Natural or Artificial Opening Endoscopic (ICD-10-PCS; CPT 45378; principal; 2022-05-11 10:10)
DX: Z12.11 Encounter for screening for malignant neoplasm of colon (principal); K64.8 Other hemorrhoids; K21.9 Gastro-esophageal reflux disease without esophagitis; R00.2 Palpitations; J30.2 Other seasonal allergic rhinitis; Z79.899 Other long term (current) drug therapy; Z91.041 Radiographic dye allergy status; Z98.890 Other specified postprocedural states
CPT/HCPCS: 45378; J2250

== ENCOUNTER 2022-08-03 06:59 | Emergency (ER) | payer OTHER, SELFPAY ==
--- NOTE | ~2022-08-03 | XR_ITS ---
EXAMINATION: XR LUMBOSACRAL SPINE CLINICAL INFORMATION: Fall. Left radicular pain. COMPARISON: Previous MRI 2018 TECHNIQUE: Three views of the lumbosacral spine. FINDINGS: There is mild 2 mm retrolisthesis of L5 with respect to S1. Bone alignment is otherwise normal. No fracture or dislocation. Degenerative disc disease at L5-S1. Degenerative spondylosis at L1-L2, L2-L3, L3-L4 and L5-S1. Lower lumbar spine facet arthritis. XR/XR lumbar spine 2-3V IMPRESSION: Degenerative changes. No fracture seen.
[2022-08-03 07:31] VITALS: BP 140/110; PULSE 95; RESP 18; TEMP 36.8; O2SAT 99; BMI 28.3
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
[2022-08-03] MEDS: Cyclobenzaprine HCl 10 MG TABLET PO (07:55)
[2022-08-03] MEDS: Ketorolac Tromethamine 60 MG/2 ML VIAL IM (07:56)
== END 2022-08-03 11:50 | disposition home or self-care (01) ==
PROVIDERS: Emergency Provider Emergency Medicine; PCP Internal Medicine Medical Oncology
DX: M54.42 Lumbago with sciatica, left side (principal); M79.605 Pain in left leg; Z79.899 Other long term (current) drug therapy
CPT/HCPCS: 72100; 96372; 99283; 99284; J1885

== ENCOUNTER → 2022-10-11 13:28 | Outpatient (BNVA) | payer OTHER, SELFPAY | PROVIDERS: PCP Internal Medicine Medical Oncology; Visit Provider Anesthesiology ==

== ENCOUNTER 2023-02-23 11:18 | Outpatient (AMB) | payer OTHER, MEDICAID, SELFPAY ==
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
[2023-02-23 11:23] VITALS: BP 137/64; PULSE 89; RESP 12; O2SAT 98; BMI 26.4
== END 2023-02-23 11:44 | disposition home or self-care (01) ==
PROVIDERS: PCP Internal Medicine Medical Oncology; Visit Provider Anesthesiology
DX: M46.1 Sacroiliitis, not elsewhere classified (principal); M47.816 Spondylosis without myelopathy or radiculopathy, lumbar region; G89.4 Chronic pain syndrome; M53.3 Sacrococcygeal disorders, not elsewhere classified; G89.29 Other chronic pain; M54.51 Vertebrogenic low back pain
CPT/HCPCS: 99214

== ENCOUNTER → 2023-02-23 11:18 | Outpatient (BNVA) | payer OTHER, SELFPAY | PROVIDERS: PCP Internal Medicine Medical Oncology; Visit Provider Anesthesiology ==

== ENCOUNTER 2023-03-30 09:35 | Emergency (ER) | payer OTHER, MEDICAID, SELFPAY | END 2023-03-30 12:27 | disposition left against medical advice (07) | PROVIDERS: Emergency Provider Emergency Medicine; PCP Internal Medicine Medical Oncology | DX: M54.9 Dorsalgia, unspecified (principal); Z53.21 Procedure and treatment not carried out due to patient leaving prior to being seen by health care provider ==

== ENCOUNTER 2023-05-12 07:54 | Outpatient (REF) | payer OTHER, MEDICAID, SELFPAY ==
[2023-05-12 08:06] LABS: MANUAL DIFF FLAG NO
[2023-05-12 08:43] LABS: Basophils Percent Auto 0.6 % (0-2); Eosinophils Absolute Auto 0.1 X10*3/uL (0.0-0.4); Eosinophils Percent Auto 1.4 % (0-4); Hematocrit 43.4 % (42.0-52.0); Hemoglobin 14.5 g/dl (14.0-18.0); Imm Gran Abs Auto 0.02 X10*3/uL (0.00-0.03); Imm Gran Pct Auto 0.4 % (0.0-0.4); Lymphocytes Absolute Auto 1.4 X10*3/uL (1.2-4.9); Lymphocytes Percent Auto 27.9 % (20-40); Mean Corpuscular HGB Conc 33.4 g/dl (31.0-36.0); Mean Corpuscular Hemoglobin 29.9 pg (27.0-33.0); Mean Corpuscular Volume 89.5 fL (80.0-98.0); Mean Platelet Volume 10.1 fL (9.4-12.4); Monocytes Absolute Auto 0.5 X10*3/uL (0.1-1.2); Monocytes Percent Auto 10.8 % (2-11); Neutrophils Percent Auto 58.9 % (45-73); Platelet Count 211 X10*3/uL (160-400); Red Blood Count 4.85 X10*6/uL (4.60-5.80); Red Cell Distribution Width 13.3 % (11.0-16.0)
[2023-05-12 09:02] LABS: Alanine Aminotransferase 20 U/L (0-40); Albumin Level 4.1 g/dL (3.5-5.0); Alkaline Phosphatase 70 U/L (39-117); Anion Gap 11 (12-20); Aspartate Amino Transferase 14 U/L (5-37); Bilirubin Total 1.1 mg/dL (0.0-1.0); Blood Urea Nitrogen 13 mg/dL (9-16); Calcium 9.3 mg/dL (8.4-10.2); Carbon Dioxide 28 mmol/L (22-29); Chloride 108 mmol/L (96-108); Cholesterol 224 mg/dL (<200); Estimated Glomerular Filt Rate > 60; Glucose Fasting 97 mg/dL (60-99); HDL Cholesterol 37 mg/dL (>40); LDL Cholesterol Calculated 132 mg/dL (<100); Potassium 4.1 mmol/L (3.3-5.1); Sodium 143 mmol/L (135-145); Total Protein 6.7 g/dL (6.5-8.0); Triglycerides 278 mg/dL (<150)
[2023-05-12 09:21] LABS: Prostate Specific Antigen 1.51 ng/mL (<0.05-4.0)
== END 2023-05-12 07:55 | disposition home or self-care (01) ==
LOC: HO.LAB 07:54
PROVIDERS: PCP Internal Medicine Medical Oncology; Visit Provider Internal Medicine Medical Oncology
DX: Z00.00 Encounter for general adult medical examination without abnormal findings (principal); Z12.5 Encounter for screening for malignant neoplasm of prostate; M54.16 Radiculopathy, lumbar region; N40.0 Benign prostatic hyperplasia without lower urinary tract symptoms; R97.20 Elevated prostate specific antigen [PSA]
CPT/HCPCS: 36415; 80053; 80061; 84153; 85025

== ENCOUNTER 2024-03-08 11:00 | Outpatient (REF) | payer OTHER, SELFPAY ==
[2024-03-08 11:34] LABS: MANUAL DIFF FLAG NO
[2024-03-08 11:43] LABS: Basophils Percent Auto 0.6 % (0-2); Eosinophils Percent Auto 0.3 % (0-4); Hematocrit 46.3 % (42.0-52.0); Hemoglobin 15.6 g/dl (14.0-18.0); Imm Gran Abs Auto 0.02 X10*3/uL (0.00-0.03); Imm Gran Pct Auto 0.3 % (0.0-0.4); Lymphocytes Absolute Auto 1.5 X10*3/uL (1.2-4.9); Lymphocytes Percent Auto 21.4 % (20-40); Mean Corpuscular HGB Conc 33.7 g/dl (31.0-36.0); Mean Platelet Volume 9.6 fL (9.4-12.4); Monocytes Absolute Auto 0.5 X10*3/uL (0.1-1.2); Monocytes Percent Auto 6.8 % (2-11); Neutrophils Percent Auto 70.6 % (45-73); Platelet Count 243 X10*3/uL (160-400); Red Cell Distribution Width 12.2 % (11.0-16.0); White Blood Count 7.1 X10*3/uL (4.8-10.8)
[2024-03-08 12:26] LABS: Alanine Aminotransferase 14 U/L (0-40); Albumin Level 4.6 g/dL (3.5-5.0); Alkaline Phosphatase 70 U/L (39-117); Anion Gap 10 (12-20); Aspartate Amino Transferase 18 U/L (5-37); Blood Urea Nitrogen 16 mg/dL (9-16); Calcium 9.5 mg/dL (8.4-10.2); Carbon Dioxide 31 mmol/L (22-29); Chloride 104 mmol/L (96-108); Estimated Glomerular Filt Rate > 60; Glucose Random 105 mg/dL (60-115); Potassium 5.3 mmol/L (3.3-5.1); Sodium 140 mmol/L (135-145); Total Protein 7.5 g/dL (6.5-8.0)
[2024-03-08 12:29] LABS: Free T4 (Free Thyroxine) 1.19 ng/dL (0.71-1.85); Thyroid Stimulating Hormone 1.14 uIU/mL (0.32-4.0)
[2024-03-08 12:30] LABS: Prostate Specific Antigen 1.78 ng/mL (<0.05-4.0)
== END 2024-03-08 11:01 | disposition home or self-care (01) ==
LOC: HO.LAB 11:00
PROVIDERS: PCP Internal Medicine Medical Oncology; Visit Provider Internal Medicine Medical Oncology
DX: M54.16 Radiculopathy, lumbar region (principal); R97.20 Elevated prostate specific antigen [PSA]; K80.20 Calculus of gallbladder without cholecystitis without obstruction; E78.5 Hyperlipidemia, unspecified; Z12.5 Encounter for screening for malignant neoplasm of prostate
CPT/HCPCS: 36415; 80053; 84153; 84439; 84443; 85025

== ENCOUNTER → 2024-05-25 07:38 | Outpatient (BNV) | payer OTHER, SELFPAY | PROVIDERS: PCP Internal Medicine Medical Oncology; Visit Provider Radiology Diagnostic Radiology | DX: M19.041 Primary osteoarthritis, right hand (principal); M24.031 Loose body in right wrist | CPT/HCPCS: 73130 ==

== ENCOUNTER 2024-07-09 13:32 | Outpatient (AMB) | payer OTHER, SELFPAY ==
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
--- OUTSIDE RECORDS SUMMARY | 2024-07-09 15:48 | XMS_ITS | Encounter Summary ---
Author Organization [facility] Address [address] [place] [address] Care Team Providers Care Machine Sneller Name Role Phone Castro Mack MD Primary Care Provider [phone] Reason for Referral * Imaging (Routine) - Closed Specialty Diagnoses / Procedures Referred By Contac t Referred To Contact Radiology Diagnoses Neck pain, chronic Procedures MR Cervical Spine wo Contrast Malathi Smith PA [address] [facility], [address] [address] Phone: tel: fax: [address] [address] Phone: tel: Referral ID Status Reason Start Date Expiration Date Visits Re quested Visits Authorized [id number] Closed 06/01/2024 06/01/2025 1 1 Reason for Visit * Imaging (Routine) - Closed Specialty Diagnoses / Procedures Referred By Contac t Referred To Contact Radiology Diagnoses Neck pain, chronic Procedures MR Cervical Spine wo Contrast Malathi Smith PA [address] [facility], [address] [address] Phone: tel: fax: [facility] [address] [place] [address] Phone: tel: Referral ID Status Reason Start Date Expiration Date Visits Re quested Visits Authorized [id number] Closed 06/01/2024 06/01/2025 1 1 Encounter Details Date Type Department Care Team (Latest Contact Info) Description 06/11/2024 10:42 AM EST - 06/11/2024 11:59 PM EST Hospital Encounter [facility] [address] [place] [address] Neck pain, chronic Discharge Disposition: Home or Self Care Social History Tobacco Use Types Packs/Day Years Used Date Smoking Tobacco: Never Smokeless Tobacco: Never Sex and Gender Information Value Date Recorded Sex Assigned at Male 03/30/2024 7:50 PM EST Legal Sex Male 3:16 AM EST Gender Identity Male 03/30/2024 7:50 PM EST Sexual Orientation Straight 03/30/2024 7: 50 PM EST documented as of this encounter Medications at Time of Discharge cyclobenzaprine (FLEXERIL) 10 mg tablet TAKE 1 TABLET BY MOUTH 3 TIMES A DAY FOR 7 DAYS NEEDED FOR SPASM 03/12/2024 ibuprofen (ADVIL,MOTRIN) 800 mg tablet Take 1 tablet (800 mg total) by mouth every 8 (eight) hours if needed. mirtazapine (REMERON GEOFF-TAB) 15 mg disintegrating tablet Take 1 tablet (15 mg total) by mouth 1 (one) time each day. for 30 days 03/09/2024 omeprazole (PriLOSEC) [address] capsule Take 1 capsule (20 mg total) by mouth 1 (one) time each day. tamsulosin (FLOMAX) 0.4 mg 24 hr capsule Take 1 capsule (0.4 mg total) by mouth 1 (one) time each day. Take 30 mins after same meal every day. oxyCODONE (ROXICODONE) 5 mg immediate release tablet Take 1-2 tablets (5-10 mg total) by mouth. Every 4-6 hours as needed for severe pain 04/04/2023 5 documented as of this encounter Discharge Disposition Disposition Code Departure Means Destination Home or Self Care documented in this encounter Plan of Treatment Upcoming Encounters Date Type Department Care Team (Late st Contact Info) Description 07/16/2024 3:00 PM EDT Office Visit Neurosurgery [facility] [address] [facility] [address] [place] [address] Vivi Coreas MD [address] [place] [id number] documented as of this encounter Procedures Procedure Name Priority Date/Time Associated Diagnosis Comments MR CERVICAL SPINE WO CONTRAST Routine 06/11/2024 12:12 PM EST Neck pain, chronic documented in this encounter Results * MR Cervical Spine wo Contrast (06/11/2024 12:12 PM EST) Anatomical Region Laterality Modality C-spine, Spine Magnetic Resonan ce 06/13/2024 11:5 1 AM EST Impressions 06/13/2024 11:55 AM EST Degenerative changes of the cervical spine as detailed above, most prominent at C4-5 where there is severe right foraminal stenosis and a right central protrusion which flattens the cord. -------- FINAL REPORT -------- Dictated By: Larry Benavides Dictated Date: 06/13/2024 11:51 ET Assigned Physician: Larry Benavides Reviewed and Electronically Signed By: Larry Benavides Signed Date: 06/13/2024 11:55 ET Workstation ID: [id number] Transcribed By: Self Edit Transcribed Date: 06/13/2024 11:51 ET Narrative 06/13/2024 11:55 AM EST PROCEDURE: MRI of the cervical spine without intravenous contrast. TECHNIQUE: Sagittal and axial multisequence MRI of the cervical spine without intravenous contrast administration. HISTORY: neck pain, left arm hyperreflexia, dropping things, n/t hands COMPARISON: None. FINDINGS: Minimal mucosal thickening along the floor of the sphenoid sinus. ??Visualized portions of the brain and skull base are otherwise unremarkable. The paraspinous soft tissues are normal. Straightening of the typical cervical lordosis. ??No listhesis. ??No concerning marrow infiltrative lesion. The cervical cord is normal in caliber and signal. Cervical disc levels: C2-3: Minimal degenerative irregularity of the endplates and facet joints. ??Minimal left uncovertebral spurs. ??No spinal or foraminal stenosis. C3-4: Minimal left uncovertebral spurs. ??Mild left and minimal right facet arthropathy. ??Minimal left foraminal stenosis. ??No spinal stenosis. C4-5: Mild disc space height loss and endplate irregularity. ??Minimal anterior endplate osteophytes. ??Large right and small left uncovertebral spurs. ??There is a moderate right central focal protrusion which flattens the right anterior cord. ??No significant spinal stenosis. ??Severe right and mild left foraminal stenosis. C5-6: Mild disc space height loss and endplate irregularity. ??Small anterior endplate osteophytes. ??Small bilateral uncovertebral spurs and a small broad- based left central protrusion which slightly flattens the cord. ??Mild-moderate bilateral foraminal stenosis. ??No significant spinal stenosis. C6-7: No significant disc or facet abnormality. ??No spinal or foraminal stenosis. C7-T1: Mild right and minimal left facet arthropathy. ??Mild degenerative irregularity of the endplates. ??No spinal or foraminal stenosis. Procedure Note Larry Benavides MD - 06/13/2024 PROCEDURE: MRI of the cervical spine without intravenous contrast. TECHNIQUE: Sagittal and axial multisequence MRI of the cervical spinewithout intravenous contrast administration. HISTORY: neck pain, left arm hyperreflexia, dropping things, n/t hands COMPARISON: None. FINDINGS: Minimal mucosal thickening along the floor of the sphenoid sinus.Visualized portions of the brain and skull base are otherwiseunremarkable. The paraspinous soft tissues are normal. Straightening of the typical cervical lordosis. No listhesis. Noconcerning marrow infiltrative lesion. The cervical cord is normal in caliber and signal. Cervical disc levels: C2-3: Minimal degenerative irregularity of the endplates and facet joints.Minimal left uncovertebral spurs. No spinal or foraminal stenosis. C3-4: Minimal left uncovertebral spurs. Mild left and minimal right facetarthropathy. Minimal left foraminal stenosis. No spinal stenosis. C4-5: Mild disc space height loss and endplate irregularity. Minimalanterior endplate osteophytes. Large right and small left uncovertebralspurs. There is a moderate right central focal protrusion which flattensthe right anterior cord. No significant spinal stenosis. Severe rightand mild left foraminal stenosis. C5-6: Mild disc space height loss and endplate irregularity. Smallanterior endplate osteophytes. Small bilateral uncovertebral spurs and asmall broad-based left central protrusion which slightly flattens thecord. Mild-moderate bilateral foraminal stenosis. No significant spinalstenosis. C6-7: No significant disc or facet abnormality. No spinal or foraminalstenosis. C7-T1: Mild right and minimal left facet arthropathy. Mild degenerativeirregularity of the endplates. No spinal or foraminal stenosis. IMPRESSION: Degenerative changes of the cervical spine as detailed above, mostprominent at C4-5 where there is severe right foraminal stenosis and aright central protrusion which flattens the cord. -------- FINAL REPORT -------- Dictated By: Larry Benavides Dictated Date: 06/13/2024 11:51 ET Assigned Physician: Larry Benavides Reviewed and Electronically Signed By: Larry Benavides Signed Date: 06/13/2024 11:55 ET Workstation ID: [id number] Transcribed By: Self Edit Transcribed Date: 06/13/2024 11:51 ET Malathi CRAFT IMG MRI PROCEDURES Final R esult documented in this encounter Visit Diagnoses Diagnosis Neck pain, chronic documented in this encounter Care Teams Machine Sneller Relationship Specialty Start Date End Date Castro Mack MD [address] [address] PCP - General Oncology 05/28/24 documented as of this encounter
--- OUTSIDE RECORDS SUMMARY | 2024-07-09 15:48 | XMS_ITS | Encounter Summary ---
Author Organization [facility] Address [address] [place] [address] Care Team Providers Care Software Quality Tester Name Role Phone Castro Mack MD Primary Care Provider [phone] Reason for Visit * Reason Onset Date Comments Appointment 06/19/2024 [employer] auth # [id number] for Right L4-5 TFE injection scheduled for 07/04/24 @ 9am (8am arrival, need driver license examiner, no blood thinners 5 days prior) at [facility] Interventional Radiology. Pt aware Encounter Details Date Type Department Care Team (Late st Contact Info) Description 06/19/[address] [address] [place], [place] Appointment ([employer] auth # [id number] for Right L4-5 TFE injection scheduled for 07/04/24 @ 9am (8am arrival, need driver license examiner, no blood thinners 5 days prior) at [facility] Interventional Radiology. Pt aware) Social History Tobacco Use Types Packs/Day Years Used Date Smoking Tobacco: Never Smokeless Tobacco: Never Sex and Gender Information Value Date Recorded Sex Assigned at Male 03/30/2024 7:50 PM EST Legal Sex Male 3:16 AM EST Gender Identity Male 03/30/2024 7:50 PM EST Sexual Orientation Straight 03/30/2024 7: 50 PM EST documented as of this encounter Plan of Treatment Upcoming Encounters Date Type Department Care Team (Late st Contact Info) Description 07/16/2024 3:00 PM EDT Office Visit [address] [phone] Vivi Coreas MD [address] [place] [address] documented as of this encounter Visit Diagnoses Not on filedocumented in this encounter Care Teams Software Quality Tester Relationship Specialty Start Date End Date Castro Mack MD [address] [address] PCP - General Oncology 05/28/24 documented as of this encounter
--- OUTSIDE RECORDS SUMMARY | 2024-07-09 15:48 | XMS_ITS | Encounter Summary ---
Author Organization [facility] Address [address] [place] [address] Care Team Providers Care Recruiter Coordinator Name Role Phone Castro Mack MD Primary Care Provider [phone] Reason for Referral * Imaging (Routine) - Closed Specialty Diagnoses / Procedures Referred By Contac t Referred To Contact Radiology Diagnoses Lumbar disc herniation with radiculopathy Procedures IR Lumbar Sacral Transforaminal Epidural 1st Lvl Right Malathi Smith PA [address] [facility], [address] [address] Phone: tel: fax: [facility] Interventional Radiology [address] [place] [phone] Phone: tel: Referral ID Status Reason Start Date Expiration Date Visits Re quested Visits Authorized [id number] Closed 06/19/2024 06/19/2025 1 1 Reason for Visit * Imaging (Routine) - Closed Specialty Diagnoses / Procedures Referred By Contac t Referred To Contact Radiology Diagnoses Lumbar disc herniation with radiculopathy Procedures IR Lumbar Sacral Transforaminal Epidural 1st Lvl Right Malathi Smith PA [address] [facility], [address] [address] Phone: tel: fax: [facility] Interventional Radiology [address] [place] [phone] Phone: tel: Referral ID Status Reason Start Date Expiration Date Visits Re quested Visits Authorized [id number] Closed 06/19/2024 06/19/2025 1 1 Encounter Details Date Type Department Care Team (Latest Contact Info) Description 07/04/2024 7:53 AM EDT - 07/04/2024 11:59 PM EDT Hospital Encounter [facility] Interventional Radiology [address] [place] [address] Lumbar disc herniation with radiculopathy Discharge Disposition: Home or Self Care Social History Tobacco Use Types Packs/Day Years Used Date Smoking Tobacco: Never Smokeless Tobacco: Never Sex and Gender Information Value Date Recorded Sex Assigned at Male 03/30/2024 7:50 PM EST Legal Sex Male 3:16 AM EST Gender Identity Male 03/30/2024 7:50 PM EST Sexual Orientation Straight 03/30/2024 7: 50 PM EST documented as of this encounter Last Filed Vital Signs Vital Sign Reading Time Taken Comments Blood Pressure 109/84 07/04/2024 11:00 AM EDT Pulse 57 07/04/2024 11:00 AM EDT Temperature 36.4 ??C (97.5 ??F) 07/04/2024 7:59 AM ED T Respiratory Rate 16 07/04/2024 11:00 AM EDT Oxygen Saturation 97% 07/04/2024 11:00 AM EDT Inhaled Oxygen Concentration - - Weight 83.9 kg (185 lb) 07/04/2024 8:06 AM EDT Height 185.4 cm (6' 1 ) 07/04/2024 8:06 AM EDT Body Mass Index 24.41 07/04/2024 8:06 AM EDT documented in this encounter Medications at Time of Discharge [...] 30 mins after same meal every day. 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 HPI: PMHx: Past Medical History: Diagnosis Date Atypical chest pain Noncardiac chest pain GERD (gastroesophageal reflux disease) IBS (irritable bowel syndrome) asx for years Mixed hyperlipidemia lost weight, off meds Prostatitis tamsulosin Seasonal allergies Tubular adenoma Colonoscopy September 2021 Surgical Hx: Past Surgical History: Procedure Laterality Date BACK SURGERY 12/09/2017 Left L5-S1 minimally invasive discectomy, Dr. Coreas BACK SURGERY 03/2023 Redo left L5-S1 minimally invasive discectomy, Dr. Coreas CARDIAC CATHETERIZATION 10/2008 [facility] [place] KNEE SURGERY Right Multiple arthroscopic sx 2007, 2009, torn meniscus Dr. Adam 2013, June 2018 KNEE SURGERY Left x4, Dr. Jimenez SHOULDER SURGERY Right 10/2022 TOTAL KNEE ARTHROPLASTY Right 05/2020 Dr. Pat Medications/Allergies: Allergies Allergen Reactions Iodinated Contrast Media Anaphylaxis Current Outpatient Medications: mirtazapine (REMERON GEOFF-TAB) 15 mg disintegrating tablet, Take 1 tablet (15 mg total) by mouth 1 (one) time each day. for 30 days, Disp: , Rfl: cyclobenzaprine (FLEXERIL) 10 mg tablet, TAKE 1 TABLET BY MOUTH 3 TIMES A DAY FOR 7 DAYS NEEDED FOR SPASM (Patient not taking: Reported on 06/01/2024), Disp: , Rfl: ibuprofen (ADVIL,MOTRIN) 800 mg tablet, Take 1 tablet (800 mg total) by mouth every 8 (eight) hoursif needed., Disp: , Rfl: omeprazole (PriLOSEC) [address] capsule, Take 1 capsule (20 mg total) by mouth 1 (one) time each day., Disp: , Rfl: tamsulosin (FLOMAX) 0.4 mg 24 hr capsule, Take 1 capsule (0.4 mg total) by mouth 1 (one) time each day. Take 30 mins after same meal every day., Disp: , Rfl: No current facility-administered medications for this encounter. Family Hx: No family history on file. Social Hx: Social History Tobacco Use Smoking Status Never Smokeless Tobacco Never Social History Substance and Sexual Activity Alcohol Use Not on file Review of Systems: Constitutional: Denies fever, fatigue, generalized weakness Head/Neck: Denies dizziness, lightheadedness, headache Neurologic: Denies syncope, unusual weakness, vertigo Cardiovascular: Denies Chest pain, palpitations, dyspnea Respiratory: Denies cough, labored respirations, shortness of breath Gastrointestinal: Denies nausea, vomiting, diarrhea Genitourinary: Denies dysuria, urgency, frequency Musculoskeletal: Denies edema, extremity pain Skin: Denies breakdown, rash, dryness Endocrine: Denies heat/cold intolerance, changes in hair or skin texture Hematologic: Denies bleeding or bruising Psychiatric: Denies difficulty falling asleep or staying asleep Physical Exam: Vitals: 54 y.o. Wt Readings from Last 1 Encounters: 07/04/24 83.9 kg (185 lb) Visit Vitals BP 109/84 Pulse 57 Temp 36.4 ??C (97.5 ??F) (Temporal) Resp 16 Pe is negative Other pertinent physical findings: None. Pertinent lab results: No results found for: INR , PLT , WBC , HGB , HCT , EGFR Mallampati Classification: II (hard and soft palate, upper portion of tonsils anduvula visible) ASA Classification: ASA 2 - Patient with mild systemic disease with no functional limitations Diagnosis/Plan: Patient cleared to proceed with IR procedure. Steve Garcia MD Procedures * Steve Garcia MD - 07/04/2024 11:30 AM EDT Interventional Radiology Brief Postprocedure Note Pre-Procedure Diagnosis: The encounter diagnosis was Lumbar disc herniation with radiculopathy. Post-Procedure Diagnosis: same Description of procedure: IR Lumbar Sacral Transforaminal Epidural 1st Lvl Right Performing Provider: Steve Garcia MD Staff Role Malia Mclaughlin Linderman Operator Salena Santacruz RN CV Invasive Nurse Kathryn Guzman Linderman Operator Steve Garcia MD Radiologist Anesthesia: local anesthetic, moderate sedation Significant Findings: none Complications: none Estimated Blood Loss: none Medications (Filter: Administrations occurring from 1004 to 1047 on 07/04/24) As of 07/04/24 1047 fentaNYL (PF) (SUBLIMAZE) injection (mcg) Total dose: 100 mcg Date/Time Rate/Dose/Volume Action 07/04/24 1022 50 mcg Given 1033 25 mcg Given 1037 25 mcg Given midazolam (VERSED) injection (mg) Total dose: 2 mg Date/Time Rate/Dose/Volume Action 07/04/24 1022 1 mg Given 1033 1 mg Given lidocaine with sodium bicarbonate 1 % injection (mL) Total volume: 8 mL Date/Time Rate/Dose/Volume Action 07/04/24 1040 8 mL Given sodium chloride 0.9 % bolus (mL) Total volume: 100 mL Date/Time Rate/Dose/Volume Action 07/04/24 1045 100 mL New Bag Final Radiology report with images in PACS to follow. The patient tolerated the procedure well without incident or complication and is in stable condition. documented in this encounter Plan of Treatment Upcoming Encounters Date Type Department Care Team (Late st Contact Info) Description 07/16/2024 3:00 PM EDT Office Visit Neurosurgery [facility] [address] [facility] [address] [place] [phone] Vivi Coreas MD [address] [place] [address] documented as of this encounter Procedures Procedure Name Priority Date/Time Associated Diagnosis Comments IR LUMBAR SACRAL TRANSFORAMINAL EPIDURAL 1ST LVL RIGHT Routine 07/04/2024 10:39 AM EDT Lumbar disc herniation with radiculopathy documented in this encounter Results * IR Lumbar Sacral Transforaminal Epidural 1st Lvl Right (07/04/2024 10:39 AM EDT) Anatomical Region Laterality Modality Lumbo-sacral spine Right Interventiona l Radiology 07/04/2024 1:15 PM EDT Impressions 07/04/2024 1:[address]-guided transforaminal epidural steroid injection at the right L4-L5 level. -------- FINAL REPORT -------- Dictated By: Steve Garcia Dictated Date: 07/04/2024 13:15 ET Assigned Physician: Steve Garcia Reviewed and Electronically Signed By: Steve Garcia Signed Date: 07/04/2024 13:16 ET Workstation ID: [id number] Transcribed By: Self Edit Transcribed Date: 07/04/2024 13:15 ET Narrative 07/04/2024 1:16 PM EDT INDICATION: Right lower back and buttock pain PROCEDURE: Consent obtained for CT-guided transforaminal lumbar epidural steroid injection at the right L4-L5 level prior relevant studies: Lumbar MRI from June 11, 2024 MEDICATIONS: Local anesthesia: 2% buffered lidocaine administered subcutaneously. Sedation: Moderate intravenous sedation was initiated and maintained for 15 minutes while the patient was independently monitored by the radiology nurse under the supervision of the interventional radiologist. A total of 2 mg of Versed and 100 mcg of fentanyl administered during the procedure. Steroid: Mixture of 80 mg of Depot Medrol with 2 mL of bupivacaine Scanner: RocketOz speed 4 slice VCT Dose reduction technique: ASIR (Adaptive statistical iterative reconstruction) and/or AEC (automated exposure control) Dose: total exam DLP 190 mGY per cm ? TECHNIQUE: Patient placed prone on the CT table and multiple axial images obtained of the lumbar region. Once the appropriate level was localized the skin was marked, draped and prepped. Timeout performed and then local anesthetic administered. Under CT fluoroscopic guidance a 22-gauge spinal needle was advanced up to the localized exiting nerve root. Once needle position confirmed under imaging the steroid and anesthetic mixture injected. Procedure Note Steve Garcia MD - 07/04/2024 INDICATION: Right lower back and buttock pain PROCEDURE: Consent obtained for CT-guided transforaminal lumbar epiduralsteroid injection at the right L4-L5 level prior relevant studies: Lumbar MRI from June 11, 2024 MEDICATIONS: Local anesthesia: 2% buffered lidocaine administered subcutaneously. Sedation: Moderate intravenous sedation was initiated and maintained for15 minutes while the patient was independently monitored by the radiologynurse under the supervision of the interventional radiologist. A total of2 mg of Versed and 100 mcg of fentanyl administered during theprocedure. Steroid: Mixture of 80 mg of Depot Medrol with 2 mL of bupivacaine Scanner: RocketOz speed 4 slice VCT Dose reduction technique: ASIR (Adaptive statistical iterativereconstruction) and/or AEC (automated exposure control) Dose: total exam DLP 190 mGY per cm TECHNIQUE: Patient placed prone on the CT table and multiple axial imagesobtained of the lumbar region. Once the appropriate level was localizedthe skin was marked, draped and prepped. Timeout performed and then localanesthetic administered. Under CT fluoroscopic guidance a 22-gauge spinal needle was advanced up tothe localized exiting nerve root. Once needle position confirmed underimaging the steroid and anesthetic mixture injected. IMPRESSION: CT-guided transforaminal epidural steroid injection at the right L4-B5geudn. -------- FINAL REPORT -------- Dictated By: Steve Garcia Dictated Date: 07/04/2024 13:15 ET Assigned Physician: Steve Garcia Reviewed and Electronically Signed By: Steve Garcia Signed Date: 07/04/2024 13:16 ET Workstation ID: [id number] Transcribed By: Self Edit Transcribed Date: 07/04/2024 13:15 ET Malathi CRAFT IMG IR PROCEDURES Final Re sult documented in this encounter Visit Diagnoses Diagnosis Lumbar disc herniation with radiculopathy Displacement of lumbar intervertebral disc without myelopathy documented in this encounter Administered Medications Inactive Administered Medications - up to 3 most recent administrations Medication Order MAR Action Action Date Dose Rate Site fentaNYL (PF) (SUBLIMAZE) injection intravenous, As needed, Starting on Tue07/04/24 at 1022, Intraprocedure Given 07/04/2024 10:37 AM EDT 25 mcg Given 07/04/2024 10:33 AM EDT 25 mcg Given 07/04/2024 10:22 AM EDT 50 mcg lidocaine with sodium bicarbonate 1 % injection As needed, Starting on Tue07/04/24 at 1040, Intraprocedure Given 07/04/2024 10:40 AM EDT 8 mL midazolam (VERSED) injection intravenous, As needed, Starting on Tue07/04/24 at 1022, Intraprocedure Given 07/04/2024 10:33 AM EDT 1 mg Given 07/04/2024 10:22 AM EDT 1 mg sodium chloride 0.9 % bolus intravenous, Administer over 1 Hours, Continuous PRN, Starting on Tue07/04/24 at 1045, Intraprocedure New Bag 07/04/2024 10:45 AM EDT 100 mL documented in this encounter Discontinued Medications Medication Sig Discontinue Reason Start Date End Da te oxyCODONE (ROXICODONE) 5 mg immediate release tablet Take 1-2 tablets (5-10 mg total) by mouth. Every 4-6 hours as needed for severe pain 04/04/2023 07/04/2024 documented as of this encounter Orders Discharge Count Last Ordered Date First Orde red Date DISCHARGE PATIENT 1 07/04/2024 documented in this encounter Care Teams Recruiter Coordinator Relationship Specialty Start Date End Date Castro Mack MD [address] [address] PCP - General Oncology 05/28/24 documented as of this encounter
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
--- OUTSIDE RECORDS SUMMARY | 2024-07-09 15:48 | XMS_ITS | Encounter Summary ---
Author Organization [facility] Address [address] [place] [address] Care Team Providers Care Med Asst Name Role Phone Castro Mack MD Primary Care Provider [phone] Reason for Referral * Imaging (Routine) - Closed Specialty Diagnoses / Procedures Referred By Contac t Referred To Contact Radiology Diagnoses Lumbar disc herniation with radiculopathy Procedures IR Lumbar Sacral Transforaminal Epidural 1st Lvl Right Malathi Smith PA [address] [facility], [address] [address] Phone: tel: fax: [facility] Interventional Radiology [address] [place] [address] Phone: tel: Referral ID Status Reason Start Date Expiration Date Visits Re quested Visits Authorized [id number] Closed 06/19/2024 06/19/2025 1 1 Reason for Visit * Reason Onset Date Comments Results 06/19/2024 C-spine and L-sp ine MRIs reviewed with Dr. Coreas Encounter Details Date Type Department Care Team ([facility] Contact Info) Description 06/19/2024 Telephone Neurosurgery [place] [address] [phone] Malathi Smith PA [address] [address] Results (C-spine and L-spine MRIs reviewed with Dr. Coreas) Social History Tobacco Use Types Packs/Day Years Used Date Smoking Tobacco: Never Smokeless Tobacco: Never Sex and Gender Information Value Date Recorded Sex Assigned at Male 03/30/2024 7:50 PM EST Legal Sex Male 3:16 AM EST Gender Identity Male 03/30/2024 7:50 PM EST Sexual Orientation Straight 03/30/2024 7: 50 PM EST documented as of this encounter Progress Notes * LUANA Jacobo - 06/19/2024 9:57 AM EST I called patient, let him know Dr. Coreas reviewed C-spine and L-spine MRIs, no significant findings, no cord compression he does have multilevel degenerative changes throughout, overall mild. He has some stenosis right L4-5 foramen, she recommends trying right L4-5 TFE for his right back and buttock/thigh pain, he would like this scheduled at [facility] department. On his cervical MRI he has right C4-5 foraminal stenosis and disc bulge, but is not complaining of right arm symptoms, if he develops symptoms radiating to the right upper extremity he may want to try injection on the right at C4-5 as well. We will schedule a follow-up appointment for him to see Dr. Coreas after the injection, can go over both MRIs. All questions answered. Results for orders placed during the hospital encounter of 06/11/24 MR Lumbar Spine wo Contrast Narrative HISTORY: Low back pain, prior surgery, new symptoms left > right buttock pain, s/p left L5-S1 discectomy x 2 (2017, 2022) COMPARISON: 04/04/2023. FINDINGS: There are T2 hyperintense right renal cortical lesions, probably cysts. Paraspinous soft tissues are otherwise unremarkable. Alignment is normal. No compression deformity. No concerning marrow infiltrative lesion. Normal position of the conus at T12-L1. Lumbar disc levels: L1-2: Only imaged in the sagittal plane. Mild endplate irregularity. No spinal or foraminal stenosis. L2-3: Mild endplate irregularity. No significant spinal or foraminal stenosis. L3-4: Mild endplate irregularity. Mild degenerative irregularity of the facet joints. No significant spinal or foraminal stenosis. L4-5: Mild endplate irregularity. Minimal degenerative irregularity of the facet joints. A small focal protrusion in the right foraminal zone results in mild right foraminal stenosis. No spinal stenosis. L5-S1: Mild endplate irregularity. Mild Modic endplate changes on the left. Small left central and foraminal protrusion and annular fissure. Mild-moderate left foraminal stenosis. Mild degenerative irregularity of the facet joints. No spinal stenosis. Impression Foraminal protrusions on the left at L5-S1 and on the right at L4-5 with associated neural foraminal stenosis as detailed above. MRI of the cervical spine without intravenous contrast. 06/11/24 HISTORY: neck pain, left arm hyperreflexia, dropping things, n/t hands COMPARISON: None. FINDINGS: Minimal mucosal thickening along the floor of the sphenoid sinus. Visualized portions of the brain and skull base are otherwise unremarkable. The paraspinous soft tissues are normal. Straightening of the typical cervical lordosis. No listhesis. No concerning marrow infiltrative lesion. The cervical cord is normal in caliber and signal. Cervical disc levels: C2-3: Minimal degenerative irregularity of the endplates and facet joints. Minimal left uncovertebral spurs. No spinal or foraminal stenosis. C3-4: Minimal left uncovertebral spurs. Mild left and minimal right facet arthropathy. Minimal leftforaminal stenosis. No spinal stenosis. C4-5: Mild disc space height loss and endplate irregularity. Minimal anterior endplate osteophytes.Large right and small left uncovertebral spurs. There is a moderate right central focal protrusion which flattens the right anterior cord. No significant spinal stenosis. Severe right and mild left foraminal stenosis. C5-6: Mild disc space height loss and endplate irregularity. Small anterior endplate osteophytes. Small bilateral uncovertebral spurs and a small broad- based left central protrusion which slightly flattens the cord. Mild-moderate bilateral foraminal stenosis. No significant spinal stenosis. C6-7: No significant disc or facet abnormality. No spinal or foraminal stenosis. C7-T1: Mild right and minimal left facet arthropathy. Mild degenerative irregularity of the endplates. No spinal or foraminal stenosis. IMPRESSION: Degenerative changes of the cervical spine as detailed above, most prominent at C4-5 where there issevere right foraminal stenosis and a right central protrusion which flattens the cord. documented in this encounter Plan of Treatment Upcoming Encounters Date Type Department Care Team (Late st Contact Info) Description 07/16/2024 3:00 PM EDT Office Visit Neurosurgery [place] [facility] [address] [facility] [address] [place] [phone] Vivi Coreas MD 175 [place] [address] documented as of this encounter Results * IR Lumbar Sacral [...] Signed Date: 07/04/2024 13:16 ET Workstation ID: [id number] Transcribed By: Self Edit Transcribed Date: 07/04/2024 [...] Medrol with 2 mL of bupivacaine Scanner: Surefire Social speed 4 slice VCT Dose reduction technique: [...] Medrol with 2 mL of bupivacaine Scanner: Surefire Social speed 4 slice VCT Dose reduction technique: [...] transforaminal epidural steroid injection at the right [id number]. -------- FINAL REPORT -------- Dictated By: Steve Garcia Dictated Date: 07/04/2024 13:15 ET Assigned Physician: Steve Garcia Reviewed and Electronically Signed By: Jose, Parshant Signed Date: 07/04/2024 13:16 ET Workstation ID: [id number] Transcribed By: Self Edit Transcribed Date: 07/04/2024 13:15 ET us Malahti CRAFT IMG IR PROCEDURES Final Re sult documented in this encounter Visit Diagnoses Diagnosis Lumbar disc herniation with radiculopathy- Primary Displacement of lumbar intervertebral disc without myelopathy Lumbar disc herniation with radiculopathy Displacement of lumbar intervertebral disc without myelopathy documented in this encounter Care Teams Med Asst Relationship Specialty Start Date End Date Castro Mack MD [address] [address] PCP - General Oncology 05/28/24 documented as of this encounter
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
--- OUTSIDE RECORDS SUMMARY | 2024-07-09 15:48 | XMS_ITS | Encounter Summary ---
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 sciatica Procedures MR Lumbar Spine wo Contrast Malathi Smith PA [address] [facility], [address] [address] Phone: tel: fax: [facility] [address] [place] [address] Phone: tel: Referral ID Status Reason Start Date Expiration Date Visits Re quested Visits Authorized [id number] Closed 06/01/2024 06/01/2025 1 1 Reason for Visit * Imaging (Routine) - Closed Specialty Diagnoses / Procedures Referred By Contac t Referred To Contact Radiology Diagnoses Chronic bilateral low back pain with left-sided sciatica Procedures MR Lumbar Spine wo Contrast Malathi Smith PA [address] [facility], [address] [address] Phone: tel: fax: [facility] [address] [place] [address] Phone: tel: Referral ID Status Reason Start Date Expiration Date Visits Re quested Visits Authorized [id number] Closed 06/01/2024 06/01/2025 1 1 Encounter Details Date Type Department Care Team (Latest Contact Info) Description 06/11/2024 10:42 AM EST - 06/11/2024 11:59 PM EST Hospital Encounter [facility] [address] [place] [id number] Chronic bilateral low back pain with left-sided sciatica Discharge Disposition: Home or Self Care Social [...] 07/16/2024 3:00 PM EDT Office Visit Neurosurgery [facility] [address] [facility] [address] [place] [address] Vivi Coreas MD [address] [place] [address] documented as of this encounter Procedures Procedure Name Priority Date/Time Associated Diagnosis Comments MR LUMBAR SPINE WO CONTRAST Routine 06/11/2024 12:26 PM EST Chronic bilateral low back pain with left-sided sciatica documented in this encounter Results * MR Lumbar Spine wo Contrast (06/11/2024 12:26 PM EST) Anatomical Region Laterality Modality L-spine, Spine Magnetic Resonan ce 06/12/2024 12:3 5 PM EST Impressions 06/12/2024 1:52 PM EST Foraminal protrusions on the left at L5-S1 and on the right at L4-5 with associated neural foraminal stenosis as detailed above. -------- FINAL REPORT -------- Dictated By: Larry Benavides Dictated Date: 06/12/2024 12:35 ET Assigned Physician: Larry Benavides Reviewed and Electronically Signed By: Larry Benavides Signed Date: 06/12/2024 13:52 ET Workstation ID: [id number] Transcribed By: Self Edit Transcribed Date: 06/12/2024 12:35 ET Narrative 06/12/2024 1:52 PM EST PROCEDURE: MRI of the lumbar spine without contrast. TECHNIQUE: Multiplanar multisequence MRI of the lumbar spine without intravenous contrast administration. HISTORY: Low back pain, prior surgery, new symptoms left > right buttock pain, s/p left L5-S1 discectomy x 2 (2017, 2022) COMPARISON: 04/04/2023. FINDINGS: There are T2 hyperintense right renal cortical lesions, probably cysts. ??Paraspinous soft tissues are otherwise unremarkable. Alignment is normal. ??No compression deformity. ??No concerning marrow infiltrative lesion. Normal position of the conus at T12-L1. Lumbar disc levels: L1-2: Only imaged in the sagittal plane. ??Mild endplate irregularity. ??No spinal or foraminal stenosis. L2-3: Mild endplate irregularity. ??No significant spinal or foraminal stenosis. L3-4: Mild endplate irregularity. ??Mild degenerative irregularity of the facet joints. ??No significant spinal or foraminal stenosis. L4-5: Mild endplate irregularity. ??Minimal degenerative irregularity of the facet joints. ??A small focal protrusion in the right foraminal zone results in mild right foraminal stenosis. ??No spinal stenosis. L5-S1: Mild endplate irregularity. ??Mild Modic endplate changes on the left. ??Small left central and foraminal protrusion and annular fissure. ??Mild-moderate left foraminal stenosis. ??Mild degenerative irregularity of the facet joints. ??No spinal stenosis. Procedure Note Larry Benavides MD - 06/12/2024 PROCEDURE: MRI of the lumbar spine without contrast. TECHNIQUE: Multiplanar multisequence MRI of the lumbar spine withoutintravenous contrast administration. HISTORY: Low back pain, prior surgery, new symptoms left > right buttock pain, s/p left L5-S1 discectomy x 2 (2017, 2022) COMPARISON: 04/04/2023. FINDINGS: There are T2 hyperintense right renal cortical lesions, probably cysts.Paraspinous soft tissues are otherwise unremarkable. Alignment is normal. No compression deformity. No concerning marrowinfiltrative lesion. Normal position of the conus at T12-L1. Lumbar disc levels: L1-2: Only imaged in the sagittal plane. Mild endplate irregularity. Nospinal or foraminal stenosis. L2-3: Mild endplate irregularity. No significant spinal or foraminalstenosis. L3-4: Mild endplate irregularity. Mild degenerative irregularity of thefacet joints. No significant spinal or foraminal stenosis. L4-5: Mild endplate irregularity. Minimal degenerative irregularity ofthe facet joints. A small focal protrusion in the right foraminal zoneresults in mild right foraminal stenosis. No spinal stenosis. L5-S1: Mild endplate irregularity. Mild Modic endplate changes on theleft. Small left central and foraminal protrusion and annular fissure.Mild-moderate left foraminal stenosis. Mild degenerative irregularity ofthe facet joints. No spinal stenosis. IMPRESSION: Foraminal protrusions on the left at L5-S1 and on the right at L4-5 withassociated neural foraminal stenosis as detailed above. -------- FINAL REPORT -------- Dictated By: Larry Benavides Dictated Date: 06/12/2024 12:35 ET Assigned Physician: Larry Benavides Reviewed and Electronically Signed By: Larry Benavides Signed Date: 06/12/2024 13:52 ET Workstation ID: [id number] Transcribed By: Self Edit Transcribed Date: 06/12/2024 12:35 ET Malathi CRAFT IMG MRI PROCEDURES Final R esult documented in this encounter Visit Diagnoses Diagnosis Chronic bilateral low back pain with left-sided sciatica documented in this encounter Care Teams Cloth Dyer Relationship Specialty [place] [address] [place] [address] PCP - General Oncology 05/28/24 documented as of this encounter
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
== END 2024-07-09 13:44 | disposition home or self-care (01) ==
LOC: HO.HGS 13:33
PROVIDERS: PCP Internal Medicine Medical Oncology; Visit Provider Surgery
DX: K40.20 Bilateral inguinal hernia, without obstruction or gangrene, not specified as recurrent (principal)
CPT/HCPCS: 99204

== ENCOUNTER 2024-07-10 07:07 | Outpatient (REF) | payer OTHER, SELFPAY ==
[2024-07-15 22:04] LABS: Testosterone, Total 433 ng/dL (250-1100)
== END 2024-07-10 07:08 | disposition home or self-care (01) ==
LOC: HO.LAB 07:07
PROVIDERS: PCP Internal Medicine Medical Oncology; Visit Provider Internal Medicine Medical Oncology
DX: R97.20 Elevated prostate specific antigen [PSA] (principal); N40.0 Benign prostatic hyperplasia without lower urinary tract symptoms; F33.9 Major depressive disorder, recurrent, unspecified
CPT/HCPCS: 36415; 84403

== ENCOUNTER 2024-09-05 14:34 | Outpatient (AMB) | payer OTHER, SELFPAY ==
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
--- OUTSIDE RECORDS SUMMARY | 2024-09-05 14:37 | XMS_ITS ---
Author Organization Castro Mack III, MD Address [address] [place] [address] [place] [address] Care Team Providers Care Auto Claim Representative Name Role Phone Castro Mack Primary Care Provider REASON FOR VISIT Letter Social History Sex Assigned At : Social History Observation Description Sex Assigned At Male Encounters Encounter Location Date Provider Diagnosis Castro Mack III, MD [address] [place] [address] [place] [address] 08/03/2024 Castro Mack Plan Of Treatment Next Appt Details Provider Name:Castro Mack, 09/11/2024 09:00:00 AM, [address] [place] [address] [place], [address], Provider Name:Castro Mack, 05/15/2025 03:00:00 PM, [address] [place] [address] [place], [address], Progress Notes * MALIA RobbinOB:1970 ( 54 yo M)Acc No.[id number]:08/03/2024 Patient:?Eric FINLEY :1970???Age:54 Y???Sex:Male Address:[address] [place] [address] * * Date:?
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
[2024-09-05 14:53] VITALS: BP 128/55; PULSE 82; BMI 25.3
== END 2024-09-05 15:20 | disposition home or self-care (01) ==
LOC: HO.HGS 14:34
PROVIDERS: PCP Internal Medicine Medical Oncology; Visit Provider Surgery
DX: K40.20 Bilateral inguinal hernia, without obstruction or gangrene, not specified as recurrent (principal)
CPT/HCPCS: 99203

== ENCOUNTER 2024-11-07 09:32 | Emergency (ER) | payer OTHER, SELFPAY ==
--- OUTSIDE RECORDS SUMMARY | 2024-09-11 05:00 | XMS_ITS ---
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 Name Role Phone Castro Mack Primary Care Provider Allergies Allergen (clinical drug ingredient) Drug/Non Drug Allergy documented on EMR Reaction Allergy Type Onset Date Status Iodinated contrast media (substance) Iodinated Diagnostic Agents hives Drug Allergy Active REASON FOR VISIT Lumbar radiculopathy, Hyperlipidemia, Benign prostatic hypertrophy, Depression Medications Medication SIG (Take, Route, Frequency, Duration) Notes Start Date End Date Status Tamsulosin HCl 0.4 MG 1 capsule Orally O nce a day 12/03/2021 Active Ibuprofen 400 MG two tablets Orally e very 4-6 hrs Active Omeprazole 20 MG 1 capsule 1/2 to 1 h our before morning meal Orally Once a day Active Mirtazapine 30 MG 1 tablet Orally [...] Tobacco non-user Ex-cigaret te smoker Vital Signs Height 73 in 09/11/2024 Weight 191 lbs 09/11/2024 BMI 25.2 kg/m2 09/11/2024 Encounters Encounter Location Date Provider Diagnosis Castro Mack III, MD [address] [place] [address] DR [place]LSON, LILIYA [address] 09/11/2024 Castro Frederick Former smoker Z87.89 1 ; Hyperlipidemia type II E78.0 ; Cholelithiasis K80.20 ; Meniscus tear S83.209A ; Lumbar radiculopathy M54.16 ; Prostatism N40.0 ; Hyperlipemia E78.5 ; Chronic depression F32.A and Non-recurrent bilateral inguinal hernia without obstruction or gangrene K40.20 Assessments Encounter Date Diagnosis (ICD Code) Assessment Notes Treat ment Notes Treatment Clinical Notes 09/11/2024 Former smoker (ICD-1 0 - Z87.891) He is highly motivated not to smoke and we discussed methods for prevention of relapse. 09/11/2024 Hyperlipidemia type II (ICD-10 - E78.0) His lipids have been moderately elevated in the past. A repeat fasting lipid profile has been ordered. 09/11/2024 Cholelithiasis (ICD-10 - K80.20) He denies any recent abdominal pain. 09/11/2024 Meniscus tear (ICD-1 0 - S83.209A) The right knee continues to be painful and there is an effusion. He is going to see the orthopedic surgeon in the near future. I advised him to limit his walking and stress of the joint. 09/11/2024 Lumbar radiculopathy (ICD-10 - M54.16) He finds [...] he will continue to see the neurosurgeon 09/11/2024 Prostatism (ICD-10 - N40.0) He rises from sleep twice a night to urinate. We have discussed lifestyle modifications he can make to reduce nocturia. 09/11/2024 Hyperlipemia (ICD-10 - E78.5) His triglycerides are 278. Otherwise, his total cholesterol iis slightly above his target. I have recommended weight loss and diet low animal fat. He will be reevaluated weighted in the near future. 09/11/2024 Chronic depression (ICD-10 - F32.A) He is visibly depressed state. On his last visit I increased the dose of mirtazapine to 30 mg daily. He has had no ill side effects from this. The medication will be continued and his weight will be monitored.He has lost 2 pounds since his last visit. 09/11/2024 Non-recurrent bilateral inguinal hernia without obstruction or gangrene (ICD-10 - K40.20) He has seen Dr. Warner, general surgery, at [facility]-discussed his options. The discomfort is minor. He has elected for to seek a surgical opinion again. Plan Of Treatment Medication Medication Name Sig Start Date Stop Date Notes Tamsulosin HCl 0.4 MG 1 capsule Orally Once a day 12/04/19 Ibuprofen 400 MG two tablets Orally every 4-6 hrs Omeprazole 20 MG 1 capsule 1/2 to 1 h our before morning meal Orally Once a day Mirtazapine 30 MG 1 tablet Orally Once a day 06/08/2024 Cyclobenzaprine HCl 10 MG 1 tablet at Or ally three times a day 06/14/2024 Acetaminophen 325 MG TAKE 2 TABS BY MOUT H EVERY 4 HOURS NEEDED FOR PAIN X 5 DAYS. DO NOT EXCEED 4G/DAY *NOT COVERED* Oral Pending Test Test Name Order Date PROFILE, FASTING (COMPREHENSIVE METABOLI C) 09/11/2024 PSA, TOTAL 09/11/2024 CBC w DIFF 09/11/2024 Lipid Panel 09/11/2024 Next Appt Details Follow Up: 3 Months, Reason: ov review labs Provider Name:Castro Mack, 11/13/2024 09:30:00 AM, [address] [place] [address] [address], [place] QU[place]N, [id number], Provider Name:Castro Mack, 12/11/2024 10:15:00 AM, [address] [place] [address] [place], [address], Provider Name:Castro Mack, 05/15/2025 03:00:00 PM, [address] [place] [address] [address], [place], [address], Progress Notes * Robbin FINLEYOB:1970 ( 54 yo M)Acc No.[id number]:09/11/2024 Progress Notes Patient: Eric ARRIAGA Provider: Rick Mack MD :1970 A ge:54 Y S ex:Male Date:09/11/2024 Address:[address] [place], [place] [id number] Subjective: * Chief Complaints: * L umbar radiculopathyHyperlipidemiaBenign prostatic hypertrophyDepression * HPI: v : Estrella wayne returns to the office for management of medical issues. Estrella wayne has bilateral inguinal hernias, but the left is larger and more painful. Estrella wayne has decided to return to Gen. surgery to talk about having a repaired this summer. In the past he has seen Dr. Solano. His back pain and knee pain are present and stable. His depression has improved substantially with his medication. He continues his cognitive therapy on a biweekly basis. He is doing well with depression. * ROS: G eneral/Constitutional: pain N teofilo back and both knees . C hills d enies. F atigue a dmits. F ever d enies. E NT: Decreased hearing d enies. R espiratory: Cough d enies. C ardiovascular: Chest pain with exertion d enies. D yspnea on exertion?denies. S hortness of breath d enies. G astrointestinal: Constipation o ccasional. D ecreased appetite d enies. D iarrhea d enies. H eartburn o ccasional. N ausea d enies. R ectal bleeding d enies. V omiting d enies. H ematology: bruising d enies. p etechiae d enies. S wollen glands n one have been noted. G enitourinary: Frequent urination o nce a night. M usculoskeletal: Muscle aches d enies. P ainful joints d enies. S ciatica d enies. W eakness d enies. S kin: Itching d enies. R es d enies. S kin lesion(s)?denies. N eurologic: Difficulty speaking d enies. D izziness d enies.?Headache d enies. L ow back pain d enies. P sychiatric: Depressed mood d enies. * Medical History: * Surgical History: r ight knee ACL surgery Dr. Arredondo 2007left knee surgery Dr. Jimenez cardiac catheterization [facility] rthroscopy right knee 2008arthroscopy right knee 2010arthroscopy right knee, torn meniscus, Dr. Adam 2013discectomy 11/2017right knee meniscectomy 06/2018right total knee replacement HH olonoscopy, Dr. Piña, [facility], tubular adenoma ight rotator cuff surgery 11/17/22Back surgery on april 15 or of the previous year 03/23No history * Hospitalization/Major Diagno stic Procedure: N o history * Family History: F ather: 69 yrs, heart attacks,ulcers, alcoholism,. M other: 60 yrs, polio as a child, cardiac murmer, cancer of the pancreas, diagnosed with Cancer. S iblings: alive. 2 brother(s) , 2 sister(s) . 4 son(s) - healthy. . Both sisters have heart murmurs. His oldest brother suffers from anxiety. His mother had carcinoma of the pancreas. A sister has lupus. His father suffered from alcoholism. He is not aware of any additional family history of substance use disorders or addictions or mental illness. * Social History: T obacco Use: T obacco Control (Standard) T obacco use: F ormer smoker H ow long has it been since you last smoked??Greater than 10 years A dditional Findings: Tobacco non-user E x-cigarette smoker Estrella wayne has been to [place] for 6 years. He is working and lives in [place]. 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 He was born in [place], [place]. Patient is planning to join a gym to build muscle mass. * Medications: T akingTamsulosin HCl 0.4 MG Capsule 1 capsule Orally [...] tablet at Orally three times a day Taking Tamsulosin HCl 0.4 MG [...] tablet at Orally three times a day * Allergies: I odinated Diagnostic Agents: hives Objective: * Vitals: H t: 73, Wt: 191, BMI:25.2, Ht-cm: 185.42, Wt-k.64. * P ast Orders: L ab:Testosterone, Total (Order Date - 07/10/2024) (Collection Date & Time - 07/10/2024 07:20 AM) Value Reference Range Testosterone, Total [id number] - ng/dL * Examination: G eneral Examination: GENERAL APPEARANCE: p leasant, well nourished, well developed, in no acute distress, calm and relaxed, man. HEAD: a traumatic, normocephalic. EYES: e cate, perrla, anicteric, conjugate. EARS: n ormal. NOSE: s eptum intact. ORAL CAVITY: n ormal, unremarkable. NECK/THYROID: n o jugular venous distention, no carotid bruit, thyroid normal, Mild decreased range of motion. LYMPH NODES: n o enlarged lymph nodes,spleen normal. SKIN: n o suspicious lesions, anicteric. HEART: n o clicks, gallops, murmurs, or rubs, regular rhythm, S1, S2 normal, no s3, or vascular bruits. LUNGS: c lear to auscultation . BREASTS: no masses palpable bilaterally. ABDOMEN: b owel sounds normal, no ascites, no organomegaly, no mass. RECTAL EXAM: n ot examined. MUSCULOSKELETAL: e xtremities unremarkable, no clubbing, cyanosis or edema, Decreased range of motion lumbar spine and both knnees. PERIPHERAL PULSES: n ormal. NEUROLOGIC: a lert and oriented, cranial nerves 2-12 grossly intact, deep tendon reflexes 2+ symmetrical, motor strength normal upper and lower extremities, sensory exam intact. PSYCH: a lert, oriented. Assessment: * Assessment: 1. F ormer smoker - Z87.891 (Primary) N otes :He is highly motivated not to smoke and we discussed methods for prevention of relapse. 2 . H yperlipidemia type II - E78.0 N otes :His lipids have been moderately elevated in the past. A repeat fasting lipid profile has been ordered. 3 . C holelithiasis - K80.20 N otes :He denies any recent abdominal pain. 4 . M eniscus tear - S83.209A N otes :The right knee continues to be painful and there is an effusion. He is going to see the orthopedic surgeon in the near future. I advised him to limit his walking and stress of the joint. 5 . L umbar radiculopathy - M54.16 N otes :He finds that he cannot work after [...] he will continue to see the neurosurgeon 6 . P rostatism - N40.0 N otes :He rises from sleep twice a night to urinate. We have discussed lifestyle modifications he can make to reduce nocturia. 7 . H yperlipemia - E78.5 N otes :His triglycerides are 278. Otherwise, his total cholesterol iis slightly above his target. I have recommended weight loss and diet low animal fat. He will be reevaluated weighted in the near future. 8 . C hronic depression - F32.A N otes :He is visibly depressed state. On his last visit I increased the dose of mirtazapine to 30 mg daily. He has had no ill side effects from this. The medication will be continued and his weight will be monitored.He has lost 2 pounds since his last visit. 9 . N on-recurrent bilateral inguinal hernia without obstruction or gangrene - K40.20 N otes :He has seen Dr. Warner, general surgery, at [facility]- discussed his options. The discomfort is minor. He has elected for to seek a surgical opinion again. Plan: * Treatment: * Procedure Codes: * Preventive Medicine: Counseling: C are goal follow-up plan: Counseling for abnormal BMI given Y es Above Normal BMI Follow-up D ietary management education, guidance, and counseling S moking/Tobacco Use Patient counseled on the dangers of tobacco use and urged to quit. 0 09/11/2024 * Follow Up: 3 Months (Reason: ov review labs) * Images: * Sign off status: Completed true * Provider: Rick Mack MD Date: 0 09/11/2024 Generated for Amyi ng/Jeaneth/eTransmitting on: 0 11/07/2024 11:30 AM EDT History and Physical Notes * Examination Category Sub-Category Detail Notes General Examination GENERAL APPEARANCE: pleasant , well nourished, well developed, in no acute distress, calm and relaxed, man HEAD: atraumatic, normocep halic EYES: eomi, perrla, anicte felicita, conjugate EARS: normal NOSE: septum intact NECK/THYROID: no jugular venous di stention, no carotid bruit, thyroid normal, Mild decreased range of motion HEART: no clicks, gallops, murmurs, or rubs, [...] cyanosis or edema, Decreased range of motion lumbar spine and both knnees LYMPH NODES: no enlarged lymph no glenn,spleen normal RECTAL EXAM: not examined PSYCH: alert, oriented ORAL CAVITY: normal, unremarkable
--- OUTSIDE RECORDS SUMMARY | 2024-11-02 08:05 | XMS_ITS | Encounter Summary ---
Author Organization [facility] Address [address] [place] [address] Care Team Providers Care Shell Coremaker Name Role Phone Castro Mack MD Primary Care Provider [phone] Reason for Referral * Imaging (Routine) - Closed Specialty Diagnoses / Procedures Referred By Contac t Referred To Contact Radiology Diagnoses Lumbar disc herniation with radiculopathy Procedures IR Lumbar Sacral Transforaminal Epidural 1st Lvl Right Brayden Lam PA [address] [address] Phone: tel: fax: [facility] Interventional Radiology [address] [place] [phone] Phone: tel: Referral ID Status Reason Start Date Expiration Date Visits Re quested Visits Authorized [id number] Closed 10/09/2024 12/08/2024 1 1 Reason for Visit * Imaging (Routine) - Closed Specialty Diagnoses / Procedures Referred By Contac t Referred To Contact Radiology Diagnoses Lumbar disc herniation with radiculopathy Procedures IR Lumbar Sacral Transforaminal Epidural 1st Lvl Right Brayden Lam PA [address] [address] Phone: tel: fax: [facility] Interventional Radiology [address] [place] [phone] Phone: tel: Referral ID Status Reason Start Date Expiration Date Visits Re quested Visits Authorized [id number] Closed 10/09/2024 12/08/2024 1 1 Encounter Details Date Type Department Care Team (Latest Contact Info) Description 11/02/2024 8:05 AM EDT - 11/02/2024 11:59 PM EDT Hospital Encounter [facility] Interventional Radiology [address] [place] [address] Lumbar disc herniation with radiculopathy [...] Sign Reading Time Taken Comments Blood Pressure 104/76 11/02/2024 10:00 AM EDT Pulse 65 11/02/2024 10:00 AM EDT Temperature 36.1 C (97 F) 11/02/2024 8:31 AM EDT Respiratory Rate 16 11/02/2024 9:48 AM EDT Oxygen Saturation 97% 11/02/2024 10:00 AM EDT Inhaled Oxygen Concentration - - Weight 86.2 kg (190 lb) 11/02/2024 8:31 AM EDT Height 185.4 cm (6' 1 ) 11/02/2024 8:31 AM EDT Body Mass Index 25.07 11/02/2024 8:31 AM EDT documented in this encounter Discharge Instructions * Attachments The following attachments cannot be sent through Care Everywhere. * Lumbar Epidural Steroid: Post op (Divehi) documented in this encounter Medications at Time of Discharge acetaminophen (TYLENOL) 325 mg tablet TAKE 2 TABS BY MOUTH EVERY 4 HOURS NEEDED FOR PAIN X 5 DAYS. DO NOT EXCEED 4G/DAY *NOT COVERED* Oral ibuprofen (ADVIL,MOTRIN) 800 mg tablet Take 1 tablet (800 mg total) by mouth every 8 (eight) hours if needed. mirtazapine (REMERON) 30 mg tablet 1 tablet (30 mg total) 1 (one) time each day at the same time. 06/08/2024 tamsulosin (FLOMAX) 0.4 mg 24 hr capsule Take 1 capsule (0.4 mg total) by mouth 1 (one) time each day. Take 30 mins after same meal every day. documented as of this encounter Discharge Disposition Disposition Code Departure Means Destination Home or Self Care documented in this encounter Plan of Treatment Not on file documented as of this encounter Procedures Procedure Name Priority Date/Time Associated Diagnosis Comments IR LUMBAR SACRAL TRANSFORAMINAL EPIDURAL 1ST LVL RIGHT Routine 11/02/2024 9:20 AM EDT Lumbar disc herniation with radiculopathy documented in this encounter Results * IR Lumbar Sacral Transforaminal Epidural 1st Lvl Right (11/02/2024 9:20 AM EDT) Anatomical Region Laterality Modality Lumbo-sacral spine Right Interventiona l Radiology 11/02/2024 9:25 AM EDT Impressions 11/02/2024 9:29 AM EDT Right L4-5 CT-guided epidural injection. Please note CT was utilized as the patient has a contrast ALLERGY and requested the same technique and medications utilized on the prior study. -------- FINAL REPORT -------- Dictated By: Marshall Lugo Dictated Date: 11/02/2024 09:25 ET Assigned Physician: Marshall Lugo Reviewed and Electronically Signed By: Marshall Lugo Signed Date: 11/02/2024 09:29 ET Workstation ID: [id number] Transcribed By: Self Edit Transcribed Date: 11/02/2024 09:25 ET Narrative 11/02/2024 9:29 AM EDT Right L4-5 transforaminal epidural injection Patient with chronic low back pain responded well to prior epidural injection. Patient has a contrast ALLERGY to intravenous contrast. Previous procedure was performed in CT without contrast. Patient requesting technique. COMPARISON: 07/04/2024 Patient also requested moderate sedation. Moderate sedation: Under direct physician supervision, the patient was moderately sedated with 50 mcg FENTANYL and 1.0 mg VERSED IV for a total of 15 minutes. An independent interventional radiology nurse observer trained in conscious sedation provided continuous physiologic monitoring of the patient during the entirety of the procedure through recovery. Informed written consent was obtained. Patient was placed prone on the imaging table. Line Installer imaging through the L4-5 level was performed. A timeout was performed. The overlying skin was prepped and draped in usual in sterile fashion. Utilizing CT fluoroscopy a 22-gauge needle was advanced to the right L4-5 foramen. Once in position, aspiration yielded no blood return. A 3 mL picture of 80 mg DEPO-MEDROL and 2 mg 0.25% BUPIVACAINE was instilled. The needle was removed and hemostasis was achieved. Sterile dressing was applied. Patient tolerated the procedure well with no immediate complications. Procedure Note Marshall Lugo MD - 11/02/2024 Right L4-5 transforaminal epidural injection Patient with chronic low back pain responded well to prior epiduralinjection. Patient has a contrast ALLERGY to intravenous contrast.Previous procedure was performed in CT without contrast. Patientrequesting technique. COMPARISON: 07/04/2024 Patient also requested moderate sedation. Moderate sedation: Under direct physician supervision, the patient wasmoderately sedated with 50 mcg FENTANYL and 1.0 mg VERSED IV for a totalof 15 minutes. An independent interventional radiology nurse observertrained in conscious sedation provided continuous physiologic monitoringof the patient during the entirety of the procedure through recovery. Informed written consent was obtained. Patient was placed prone on theimaging table. Line Installer imaging through the L4-5 level was performed. Atimeout was performed. The overlying skin was prepped and draped in usualin sterile fashion. Utilizing CT fluoroscopy a 22-gauge needle wasadvanced to the right L4-5 foramen. Once in position, aspiration yieldedno blood return. A 3 mL picture of 80 mg DEPO-MEDROL and 2 mg 0.25%BUPIVACAINE was instilled. The needle was removed and hemostasis wasachieved. Sterile dressing was applied. Patient tolerated the procedure well with no immediate complications. IMPRESSION: Right L4-5 CT-guided epidural injection. Please note CT was utilized as the patient has a contrast ALLERGY andrequested the same technique and medications utilized on the priorstudy. -------- FINAL REPORT -------- Dictated By: Marshall Lugo Dictated Date: 11/02/2024 09:25 ET Assigned Physician: Marshall Lugo Reviewed and Electronically Signed By: Marshall Lugo Signed Date: 11/02/2024 09:29 ET Workstation ID: [id number] Transcribed By: Self Edit Transcribed Date: 11/02/2024 09:25 ET Brayden CRAFT IMG IR PROCEDURES Final Resul t documented in this encounter Visit Diagnoses Diagnosis Lumbar disc herniation with radiculopathy Displacement of lumbar intervertebral disc without myelopathy documented in this encounter Administered Medications Inactive Administered Medications - up to 3 most recent administrations Medication Order MAR Action Action Date Dose Rate Site bupivacaine (PF) (MARCAINE) 0.25 % injection As needed, Starting on Tue11/02/24 at 0924, Intraprocedure Given 11/02/2024 9:24 AM EDT 2 mL Back fentaNYL (PF) (SUBLIMAZE) injection intravenous, As needed, Starting on Tue11/02/24 at 0907, Intraprocedure Given 11/02/2024 9:07 AM EDT 50 mcg lidocaine with sodium bicarbonate 1 % injection As needed, Starting on Tue11/02/24 at 0920, Intraprocedure Given 11/02/2024 9:20 AM EDT 7 mL methylPREDNISolone acetate (DEPO-Medrol) injection As needed, Starting on Tue11/02/24 at 0924, Intraprocedure Given 11/02/2024 9:24 AM EDT 80 mg Back midazolam (VERSED) injection intravenous, As needed, Starting on Tue11/02/24 at 0907, Intraprocedure Given 11/02/2024 9:07 AM EDT 1 mg documented in this encounter Discontinued Medications Medication Sig Discontinue Reason Start Date End Da te cyclobenzaprine (FLEXERIL) 10 mg tablet TAKE 1 TABLET BY MOUTH 3 TIMES A DAY FOR 7 DAYS NEEDED FOR SPASM 03/12/2024 11/02/2024 omeprazole (PriLOSEC) [address] capsule Take 1 capsule (20 mg total) by mouth 1 (one) time each day. 11/02/2024 documented as of this encounter Orders Discharge Count Last Ordered Date First Orde red Date DISCHARGE PATIENT 1 11/02/2024 documented in this encounter Care Teams Shell Coremaker Relationship Specialty Start Date End Date Castro Mack MD [address] [address] PCP - General Oncology 05/28/24 documented as of this encounter
--- NOTE | ~2024-11-07 | XR_ITS ---
EXAMINATION: XR LUMBOSACRAL SPINE CLINICAL INFORMATION: pain COMPARISON: August 03, 2022 TECHNIQUE: Three views of the lumbosacral spine. FINDINGS: There are 5 nonrib-bearing lumbar segments. Vertebral body height is unchanged. T12-L1 demonstrates mild to moderate disc space narrowing and degenerative osteophytes. L1-2 demonstrates mild disc space narrowing and ossification of the anterior disc annulus that has increased. L2-3 demonstrates obscuration anterior disc annulus and mild facet osteophytes. L3-4 demonstrates anterior osteophytes and facet sclerosis with osteophytes. L4-5 there is ossification of the posterior disc annulus and mild facet sclerosis. L5-S1: There is mild grade 1 retrolisthesis and facet sclerosis. XR/XR lumbar spine 2-3V IMPRESSION: Degenerative disc disease and facet osteoarthritis. Electronically signed by: Jesus Granados MD 11/07/2024 12:16 PM EDT
--- NOTE | ~2024-11-07 | XR_ITS ---
EXAMINATION: XR HIP 1 VIEW LEFT WITH PELVIS HISTORY: pain COMPARISON: There are no prior studies available for comparison. FINDINGS: A single AP view of the pelvis and two views of the left hip are submitted. There is abnormal mixed lucency and sclerosis in the femoral head, suggestive of avascular necrosis. There is no fracture or dislocation. The joint space is maintained. The soft tissues are unremarkable. XR/XR hip LT w PEL1V IMPRESSION: Mixed lucency and sclerosis in the left femoral head, suggestive of avascular necrosis. This could be further evaluated with MRI. Electronically signed by: Castro Guy MD 11/07/2024 12:13 PM EDT
[2024-11-07 09:37] VITALS: BP 131/61; PULSE 79; RESP 16; TEMP 36.9; O2SAT 98; BMI 25.1
[2024-11-07 10:28] LABS: Appearance Urine Clear; Glucose Urine UA Negative (Negative); PH 8.0 (5.0-9.0); Specific Gravity - Urine 1.025 (1.005-1.025)
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
[2024-11-07 14:17] VITALS: BP 128/60; PULSE 76; RESP 16; TEMP 36.8; O2SAT 99
[2024-11-07] MEDS: Morphine Sulfate Immed Release 15 MG TABLET PO (14:26)
[2024-11-07 15:45] VITALS: BP 128/60; PULSE 76; RESP 16; TEMP 36.8; O2SAT 99
== END 2024-11-07 15:45 | disposition home or self-care (01) ==
PROVIDERS: Emergency Provider Emergency Medicine; PCP Internal Medicine Medical Oncology
DX: M25.552 Pain in left hip (principal); M54.50 Low back pain, unspecified; Z79.899 Other long term (current) drug therapy
CPT/HCPCS: 72100; 73502; 81003; 96372; 99283; 99284; J1885; J8540

== ENCOUNTER → 2024-11-07 11:24 | Outpatient (BNV) | payer OTHER, SELFPAY | PROVIDERS: Emergency Provider Emergency Medicine; PCP Internal Medicine Medical Oncology; Visit Provider Radiology Diagnostic Radiology | DX: M25.552 Pain in left hip (principal); M47.816 Spondylosis without myelopathy or radiculopathy, lumbar region | CPT/HCPCS: 72100; 73502 ==